=== PATIENT | female | born 1955 | race Caucasian/White ===

== ENCOUNTER 2021-06-13 11:15 | Inpatient (IN) | payer MEDICARE ==
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
[2021-06-14] MEDS ORDERED: NON-FORMULARY EACH (Albuterol Sulfate [Proair Respiclick] 90 MCG Aer.Pow.Ba) IH PRN (09:21)
[2021-06-14] MEDS ORDERED: ALPRAZolam 0.25 MG TAB PO PRN (09:21)
[2021-06-14] MEDS ORDERED: SODIUM CHLORIDE NASAL SPRAY 44ML NS PRN (09:21)
[2021-06-14] MEDS ORDERED: CYCLOBENZAPRINE 10 MG TAB PO PRN (09:21)
[2021-06-14] MEDS ORDERED: NON-FORMULARY EACH (Cholecalciferol (Vitamin D3) [Vitamin D3 2,000 Unit Cap] 2,000 UNIT Ca PO SCH (10:00)
[2021-06-14] MEDS ORDERED: LEVOTHYROXINE 88 MCG TAB PO SCH (10:00)
[2021-06-14] MEDS ORDERED: NON-FORMULARY EACH (Duloxetine Hcl [Duloxetine Hcl] 60 MG Capsule.Dr) PO SCH (10:00)
[2021-06-14] MEDS ORDERED: NON-FORMULARY EACH (Loratadine [Allergy Relief] 10 MG Tablet) PO SCH (10:00)
[2021-06-14] MEDS ORDERED: NON-FORMULARY EACH (Tiotropium Bromide [Spiriva Respimat] 4 GM Mist.Inhal) IH SCH (10:00)
[2021-06-14] MEDS ORDERED: BIOTIN 1 MG PO SCH (10:00)
[2021-06-14] MEDS ORDERED: NON-FORMULARY EACH (Omeprazole [Omeprazole] 20 MG Capsule.Dr) PO SCH (10:00)
[2021-06-14] MEDS: CYANOCOBALAMIN (VIT B-12) 1000 MCG TAB PO SCH (12:10)
[2021-06-14] MEDS: carvediloL 25 MG TAB PO SCH ×2 (12:13→21:38)
[2021-06-14] MEDS: FLUTICASONE PROPIONATE NASAL SPRAY 16 GM NS SCH ×2 (12:14→21:39)
[2021-06-14] MEDS: MAGNESIUM OXIDE 400 MG TAB PO SCH (12:15)
[2021-06-14] MEDS: CHOLECALCIFEROL (VIT D3) 1000 UNIT (25 mcg) TAB PO SCH (15:33)
--- NOTE | 2021-06-14 18:19 | Consultation ---
History of Present Illness - Reason for Consult Medical management Requesting physician: JOSE RAMON LAUREN - History of Present Illness 65-year-old female with osteoarthritis, hypertension, CHF, hyperlipidemia, hypothyroidism, chronic kidney disease, atrial fibrillation, vascular dementia with behavioral disturbance, cerebral atherosclerosis admitted to [facility] for psychiatric stabilization. Consult placed by Dr. Lauren for medical management. Patient seen and evaluated in her room. Patient denies fever, chills, chest pain, palpitation, productive cough, skin rash, recent contact, known exposure to COVID-19. No reported nursing events. Past History Past Medical History: atrial fib, heart failure, hypertension, hypothyroidism, other (See HPI) Past Surgical History: No surgical history, Other (Reviewed) Social history: single. denies: smoking, alcohol abuse, prescription drug abuse Family history: hypertension Medications and Allergies Allergies Allergy/AdvReac Type Severity Reaction Status Date / Time amlodipine Allergy Unknown Verified 06/14/21 16:46 apixaban Allergy Rash Verified 06/14/21 16:46 atenolol Allergy Rash Verified 06/14/21 16:46 cefdinir Allergy Unknown Verified 06/14/21 16:46 celecoxib Allergy Rash Verified 06/14/21 16:46 cephalexin Allergy Rash Verified 06/14/21 16:46 digoxin Allergy Rash Verified 06/14/21 16:46 doxycycline Allergy Rash Verified 06/14/21 16:46 isosorbide Allergy Rash Verified 06/14/21 16:46 Latex, Natural Rubber Allergy Rash Verified 06/14/21 16:46 [place] Allergy Unknown Verified 06/14/21 16:46 lisinopril Allergy Unknown Verified 06/14/21 16:46 methylprednisolone Allergy Unknown Verified 06/14/21 16:46 Penicillins Allergy Rash Verified 06/14/21 16:46 pregabalin Allergy Unknown Verified 06/14/21 16:46 propranolol Allergy Unknown Verified 06/14/21 16:46 rivaroxaban Allergy Unknown Verified 06/14/21 16:46 Sulfa (Sulfonamide Allergy Unknown Verified 06/14/21 16:46 Antibiotics) sulfamethoxazole Allergy Unknown Verified 06/14/21 16:46 [From Sulfamethoxazole-Trimethoprim] trimethoprim Allergy Unknown Verified 06/14/21 16:46 [From Sulfamethoxazole-Trimethoprim] Home Medications Medication Instructions Recorded Confirmed Last Taken Type ALPRAZolam [Xanax TAB] 0.25 mg PO 4XD PRN 06/13/21 06/13/21 Unknown History Albuterol Sulfate [Proair 90 mcg IH Q4HR PRN 06/13/21 06/13/21 Unknown History Respiclick] AtorvaSTATin [Lipitor] 20 mg PO BID 06/13/21 06/14/21 Unknown History Biotin [Biotin 1] 2,500 mcg PO DAILY 06/14/21 06/14/21 Unknown History Cholecalciferol (Vitamin D3) 2,000 unit PO QDAY 06/14/21 06/14/21 Unknown History [Vitamin D3 2,000 UNIT CAP] Cyanocobalamin (Vitamin B-12) 500 mcg PO DAILY 06/14/21 06/14/21 Unknown History [Vitamin B-12] Cyclobenzaprine [Flexeril 10 MG 10 mg PO BID PRN 06/14/21 06/14/21 Unknown History TAB] Duloxetine HCl 60 mg PO DAILY 06/14/21 06/14/21 Unknown History Fluticasone [Flonase] 1 spray NS BID 06/14/21 06/14/21 Unknown History Levothyroxine [Synthroid] 88 mcg PO QAM 06/14/21 06/14/21 Unknown History Loratadine [Allergy Relief] 10 mg PO DAILY 06/14/21 06/14/21 Unknown History Magnesium Oxide [Mag-Ox] 400 mg PO QDAY 06/14/21 06/14/21 Unknown History Omeprazole 20 mg PO DAILY 06/14/21 06/14/21 Unknown History Potassium Chloride [K-Dur] 20 meq PO QDAY 06/14/21 06/14/21 Unknown History Sodium Chloride 0.65% Nasal [Deep 2 spray NS 4XD PRN 06/14/21 06/14/21 Unknown History Sea NASAL SPRAY] Tiotropium [place] [Spiriva 2.5 mcg IH DAILY 06/14/21 06/14/21 Unknown History Respimat] Torsemide [Demadex] 20 mg PO HS 06/14/21 06/14/21 Unknown History Warfarin [Coumadin] 2.5 mg PO 5XW 06/14/21 06/14/21 Unknown History Warfarin [Coumadin] 5 mg PO 2XW 06/14/21 06/14/21 Unknown History carvediloL [Coreg] 25 mg PO BID 06/14/21 06/14/21 Unknown History hydrOXYzine PAMOATE [Vistaril] 25 mg PO Q4HR PRN 06/14/21 06/14/21 Unknown History oxyCODONE /ACETAMINOPHEN [Percocet 1 tab PO TID PRN 06/14/21 06/14/21 Unknown History 5/325 mg] Benztropine [Cogentin] 0.5 mg PO DAILY #60 tablet 06/24/21 Unknown Rx Melatonin [Melatonin 5MG TAB] 5 mg PO QHS PRN #30 tablet 06/24/21 Unknown Rx OLANzapine [ZyPREXA] 15 mg PO QHS #90 tablet 06/24/21 Unknown Rx Active Meds: Active Medications Alprazolam (Alprazolam 0.25 Mg Tab) 0.25 mg PO 4XD PRN PRN Reason: anxiety Atorvastatin Calcium (Atorvastatin 20 Mg Tab) 20 mg PO BID [facility] Last Admin: 06/14/21 12:12 Dose: 20 mg Documented by: Carvedilol (Carvedilol 25 Mg Tab) 25 mg PO BID [facility] Last Admin: 06/14/21 12:13 Dose: 25 mg Documented by: Cholecalciferol (Cholecalciferol (Vit D3) 1000 Unit (25 Mcg) Tab) 2,000 unit PO DAILY [facility] Last Admin: 06/14/21 15:33 Dose: 2,000 unit Documented by: Cyanocobalamin (Cyanocobalamin (Vit B-12) 1000 Mcg Tab) 500 mcg PO DAILY [facility] Last Admin: 06/14/21 12:10 Dose: 500 mcg Documented by: Cyclobenzaprine HCl (Cyclobenzaprine 10 Mg Tab) 10 mg PO BID PRN PRN Reason: Muscle Spasm Fluticasone Propionate (Fluticasone Propionate Nasal [place] 16 Gm) 50 mcg NS BID [facility] Last Admin: 06/14/21 12:14 Dose: 50 mcg Documented by: Hydroxyzine Pamoate (Hydroxyzine Pamoate 25 Mg Cap) 25 mg PO Q4HR PRN PRN Reason: anxiety Levothyroxine Sodium (Levothyroxine 88 Mcg Tab) 88 mcg PO QAM [facility] Last Admin: 06/14/21 12:12 Dose: 88 mcg Documented by: Magnesium Oxide (Magnesium Oxide 400 Mg Tab) 400 mg PO QDAY [facility] Olanzapine (Olanzapine 2.5 Mg Tab) 2.5 mg PO HS [facility] Oxycodone/Acetaminophen (Oxycodone /Acetaminophen 5-325mg Tab) 1 tab PO TID PRN PRN Reason: PAIN Potassium Chloride (Potassium Chloride Er 10 Meq Tab) 20 meq PO QDAY [facility] Sodium Chloride (Sodium Chloride Nasal [place] 44ml) 2 spray NS 4XD PRN PRN Reason: congestion Warfarin Sodium (Warfarin 2.5 Mg Tab) 2.5 mg PO 5XW [facility]; Protocol Warfarin Sodium (Warfarin 5 Mg Tab) 5 mg PO 2XW [facility]; Protocol Review of Systems Constitutional: no weight loss, no weight gain, no fever, no chills Ears, nose, mouth and throat: no ear pain, no ear discharge, no decreased hearing, no nose pain, no nasal congestion Breasts: no change in shape, no swelling, no mass Cardiovascular: no chest pain, no orthopnea, no palpitations, no rapid/irregular heart beat, no edema Respiratory: no cough, no cough with sputum, no hemoptysis, no dyspnea on exertion Gastrointestinal: no nausea, no vomiting, no diarrhea, no constipation, no change in bowel habits Genitourinary Female: no pelvic pain, no flank pain, no dysuria, no urinary frequency, no urgency Rectal: no pain, no incontinence, no bleeding Musculoskeletal: no neck stiffness, no neck pain, no arm numbness/tingling, no low back pain Integumentary: no rash, no redness, no sores, no wounds Neurological: no head injury, no paralysis, no parathesias, no numbness, no seizures, no tremors Psychiatric: hallucinations, hopelessness Endocrine: no cold intolerance, no heat intolerance, no polyphagia, no polydipsia, no polyuria Hematologic/Lymphatic: no easy bruising, no easy bleeding Exam - Constitutional Vitals: Temp Pulse Resp BP Pulse Ox 98.7 F 70 18 138/74 92 06/14/21 08:07 06/14/21 12:13 06/14/21 08:07 06/14/21 12:13 06/14/21 08:07 General appearance: Present: obese - EENT Eyes: Present: PERRL ENT: hearing intact, clear oral mucosa - Neck Neck: Present: supple, normal ROM - Respiratory Respiratory effort: normal Respiratory: bilateral: CTA - Cardiovascular Heart Sounds: Present: S1 & S2. Absent: rub, click - Extremities Extremities: pulses symmetrical, No edema Peripheral Pulses: within normal limits - Abdominal General gastrointestinal: Present: soft, non-tender, non-distended, normal bowel sounds Female genitourinary: Present: normal - Integumentary Integumentary: Present: clear, warm, dry - Musculoskeletal Musculoskeletal: gait normal, strength equal bilaterally - Psychiatric Psychiatric: appropriate mood/affect, intact judgment & insight - Neurologic Neurologic: CNII-XII intact, moves all extremities Results - Labs CBC & Chem 7: 06/15/21 17:10 06/15/21 17:10 Assessment and Plan - Patient Problems (1) Vascular dementia with behavioral disturbance Status: Acute Plan to address problem: Verbal prompting, verbal redirection, benzodiazepine therapy as clinically indicated. (2) Cerebral atherosclerosis Status: Acute Plan to address problem: Risk factor reduction, antiplatelet therapy, (3) Hypertension Status: Acute Qualifiers: Hypertension type: primary hypertension Qualified Code(s): I10 - Essential (primary) hypertension Plan to address problem: Monitor blood pressure every shift, continue medical management (4) CHF (congestive heart failure) Status: Acute Qualifiers: Heart failure chronicity: chronic Plan to address problem: Strict I/O, monitor urine output every shift, daily weight, afterload reduction, blood pressure control. Continue medical management. (5) Atrial fibrillation Status: Acute Plan to address problem: Rate control, continue therapeutic anticoagulation. (6) Advance care planning Status: Acute Plan to address problem: Disease education conducted, care plan discussed, diagnoses discussed, prognosis discussed, patient is full code. Patient acknowledges understanding and agreement with care plan, +30 minutes.
[2021-06-14] MEDS: POTASSIUM CHLORIDE ER 10 MEQ TAB PO SCH (18:37)
[2021-06-14] MEDS ORDERED: TORSEMIDE 10 MG TAB PO SCH (21:00)
[2021-06-14] MEDS: hydrOXYzine PAMOATE 25 MG CAP PO PRN (21:38)
[2021-06-14] MEDS ORDERED: NON-FORMULARY EACH (Olanzapine [Zyprexa] 15 MG Tablet) PO SCH (22:00)
[2021-06-14] MEDS ORDERED: NON-FORMULARY EACH (Torsemide [Demadex] 20 MG Tablet) PO SCH (22:00)
[2021-06-14] MEDS ORDERED: ALBUTEROL 2.5 MG/3 ML NEBU IH PRN (22:36)
[2021-06-15] MEDS: LEVOTHYROXINE 88 MCG TAB PO SCH ×2 (05:19→05:47)
[2021-06-15] MEDS ORDERED: ALPRAZolam 0.25 MG TAB PO PRN (08:00)
--- NOTE | 2021-06-15 08:10 | Progress Note ---
Subjective Date of service: 06/15/21 Subjective Comment: The patient was seen in the activity room, she is calm but paranoid. The patient states her medications are poisoned " they are trying to kill me." She endorses visual hallucinations " sing flashing colors and lights." The patient reports having intermittent auditory hallucinations. Start patient on Haldol 5mg po BID, please give IM patient refuse. REVIEW OF SYSTEMS Constitutional: Negative for weight loss ENT: Negative for stridor Respiratory: Negative for cough or hemoptysis All other systems reviewed and are negative MENTAL STATUS EXAMINATION General Appearance and Behavior: Age appropriate, good hygiene, wearing appropriate clothes, fair eye contact Cooperation: Participating/engaged, but Guarded Psychomotor Behavior: Psychomotor normal Mood: paranoid Affect and affective range: Congruent to stated mood Thought Process: illogical Thought Content: paranoid, delusions Speech: normal tone and pace Suicidal Ideation:Denies Homicidal Ideation: Denies Hallucinations: Intermittent Auditory/ Visual Hallucinations Impulse Control: Questionable Insight and Judgment: Limited insight and judgment Memory: Normal Attention: Normal Orientation: Alert and oriented Assessment and Plan (1) Schizophrenia Current Visit: Yes Status: Acute Treatment Plan Patient admitted for inpatient psychiatric evaluation, medication adjustment and close monitoring The patient's behavior, mood, sleep and appetite will be closely monitored. Patient enrolled in individual and group therapeutic sessions and encouraged to attend. Patient provided with a safe and structured environment. Patient's physical health needs will be addressed by the Hospitalist. Hospitalist Consulted Labs including CBC, CMP, Lipid profile and Hemoglobin A1C levels ordered for baseline reference Social Assessment will be completed and the Animation Camera Operator will work with patient and family to ensure a suitable and safe disposition Medication adjustment will be made as clinically indicated Start Haldol 5mg po BID, Give IM if patient refuse. Continued Home medications Usual Wellness Gnosticism/Preservation: - Start Trazodone 50 mg po QHS & 50 mg po QHS PRN between 10 PM & 2 AM for insomnia - Start Melatonin 5 mg po QHS to promote circadian rhythm The patient agreed on the treatment plan, understood the risk, benefit, alternative treatment, potential consequence of no treatment, and gave informed consent. Estimated days: 6 Post hospital care: primary care provider, psychiatric provider Case staffed with Dr. Mullins Reaction to Hospitalization: Accepting Medications and Allergies Medications and Allergies Allergies Allergy/AdvReac Type Severity Reaction Status Date / Time amlodipine Allergy Unknown Verified 06/14/21 16:46 apixaban Allergy Rash Verified 06/14/21 16:46 atenolol Allergy Rash Verified 06/14/21 16:46 cefdinir Allergy Unknown Verified 06/14/21 16:46 celecoxib Allergy Rash Verified 06/14/21 16:46 cephalexin Allergy Rash Verified 06/14/21 16:46 digoxin Allergy Rash Verified 06/14/21 16:46 doxycycline Allergy Rash Verified 06/14/21 16:46 isosorbide Allergy Rash Verified 06/14/21 16:46 Latex, Natural Rubber Allergy Rash Verified 06/14/21 16:46 [place] Allergy Unknown Verified 06/14/21 16:46 lisinopril Allergy Unknown Verified 06/14/21 16:46 methylprednisolone Allergy Unknown Verified 06/14/21 16:46 Penicillins Allergy Rash Verified 06/14/21 16:46 pregabalin Allergy Unknown Verified 06/14/21 16:46 propranolol Allergy Unknown Verified 06/14/21 16:46 rivaroxaban Allergy Unknown Verified 06/14/21 16:46 Sulfa (Sulfonamide Allergy Unknown Verified 06/14/21 16:46 Antibiotics) sulfamethoxazole Allergy Unknown Verified 06/14/21 16:46 [From Sulfamethoxazole-Trimethoprim] trimethoprim Allergy Unknown Verified 06/14/21 16:46 [From Sulfamethoxazole-Trimethoprim] Home Medications Medication Instructions Recorded Confirmed Last Taken Type ALPRAZolam [Xanax TAB] 0.25 mg PO 4XD PRN 06/13/21 06/13/21 Unknown History Albuterol Sulfate [Proair 90 mcg IH Q4HR PRN 06/13/21 06/13/21 Unknown History Respiclick] AtorvaSTATin [Lipitor] 20 mg PO BID 06/13/21 06/14/21 Unknown History Biotin [Biotin 1] 2,500 mcg PO DAILY 06/14/21 06/14/21 Unknown History Cholecalciferol (Vitamin D3) 2,000 unit PO QDAY 06/14/21 06/14/21 Unknown History [Vitamin D3 2,000 UNIT CAP] Cyanocobalamin (Vitamin B-12) 500 mcg PO DAILY 06/14/21 06/14/21 Unknown History [Vitamin B-12] Cyclobenzaprine [Flexeril] 10 mg PO BID PRN 06/14/21 06/14/21 Unknown History Duloxetine HCl 60 mg PO DAILY 06/14/21 06/14/21 Unknown History Fluticasone [Flonase] 1 spray NS BID 06/14/21 06/14/21 Unknown History Levothyroxine [Synthroid] 88 mcg PO QAM 06/14/21 06/14/21 Unknown History Loratadine [Allergy Relief] 10 mg PO DAILY 06/14/21 06/14/21 Unknown History Magnesium Oxide [Mag-Ox] 400 mg PO QDAY 06/14/21 06/14/21 Unknown History OLANZapine [Zyprexa] 15 mg PO HS 06/14/21 06/14/21 Unknown History OLANzapine [ZyPREXA] 2.5 mg PO HS 06/14/21 06/14/21 Unknown History Omeprazole 20 mg PO DAILY 06/14/21 06/14/21 Unknown History Potassium Chloride [K-Dur] 20 meq PO QDAY 06/14/21 06/14/21 Unknown History Sodium Chloride 0.65% Nasal [Deep 2 spray NS 4XD PRN 06/14/21 06/14/21 Unknown History Sea] Tiotropium [place] [Spiriva 2.5 mcg IH DAILY 06/14/21 06/14/21 Unknown History Respimat] Torsemide [Demadex] 20 mg PO HS 06/14/21 06/14/21 Unknown History Warfarin [Coumadin] 2.5 mg PO 5XW 06/14/21 06/14/21 Unknown History Warfarin [Coumadin] 5 mg PO 2XW 06/14/21 06/14/21 Unknown History carvediloL [Coreg] 25 mg PO BID 06/14/21 06/14/21 Unknown History hydrOXYzine PAMOATE [Vistaril] 25 mg PO Q4HR PRN 06/14/21 06/14/21 Unknown History oxyCODONE /ACETAMINOPHEN [Percocet 1 tab PO TID PRN 06/14/21 06/14/21 Unknown History 5/325] Active Meds: Active Medications Albuterol (Albuterol 2.5 Mg/3 Ml Nebu) 2.5 mg IH Q4HRT PRN PRN Reason: Shortness Of Breath Alprazolam (Alprazolam 0.25 Mg Tab) 0.25 mg PO Q6H PRN PRN Reason: anxiety Atorvastatin Calcium (Atorvastatin 20 Mg Tab) 20 mg PO BID [facility] Last Admin: 06/14/21 21:38 Dose: 20 mg Documented by: Carvedilol (Carvedilol 25 Mg Tab) 25 mg PO BID [facility] Last Admin: 06/14/21 21:38 Dose: 25 mg Documented by: Cetirizine HCl (Cetirizine 10 Mg Tab) 10 mg PO DAILY [facility] Cholecalciferol (Cholecalciferol (Vit D3) 1000 Unit (25 Mcg) Tab) 2,000 unit PO DAILY [facility] Last Admin: 06/14/21 15:33 Dose: 2,000 unit Documented by: Cyanocobalamin (Cyanocobalamin (Vit B-12) 1000 Mcg Tab) 500 mcg PO DAILY [facility] Last Admin: 06/14/21 12:10 Dose: 500 mcg Documented by: Cyclobenzaprine HCl (Cyclobenzaprine 10 Mg Tab) 10 mg PO BID PRN PRN Reason: Muscle Spasm Duloxetine HCl (Duloxetine 30 Mg Cap) 60 mg PO DAILY [facility] Fluticasone Propionate (Fluticasone Propionate Nasal [place] 16 Gm) 50 mcg NS BID [facility] Last Admin: 06/14/21 21:39 Dose: 50 mcg Documented by: Hydroxyzine Pamoate (Hydroxyzine Pamoate 25 Mg Cap) 25 mg PO Q4HR PRN PRN Reason: anxiety Last Admin: 06/14/21 21:38 Dose: 25 mg Documented by: Levothyroxine Sodium (Levothyroxine 88 Mcg Tab) 88 mcg PO QAM@0600 [facility] Last Admin: 06/15/21 05:47 Dose: Not Given Documented by: Magnesium Oxide (Magnesium Oxide 400 Mg Tab) 400 mg PO QDAY [facility] Last Admin: 06/14/21 12:15 Dose: 400 mg Documented by: Olanzapine (Olanzapine 2.5 Mg Tab) 2.5 mg PO HS [facility] Last Admin: 06/14/21 21:38 Dose: 2.5 mg Documented by: Olanzapine (Olanzapine 7.5 Mg Tab) 15 mg PO QHS [facility] Oxycodone/Acetaminophen (Oxycodone /Acetaminophen 5-325mg Tab) 1 tab PO TID PRN PRN Reason: PAIN Pantoprazole Sodium (Pantoprazole 20 Mg Tab) 20 mg PO DAILY [facility] Potassium Chloride (Potassium Chloride Er 10 Meq Tab) 20 meq PO QDAY [facility] Last Admin: 06/14/21 18:37 Dose: Not Given Documented by: Sodium Chloride (Sodium Chloride Nasal [place] 44ml) 2 spray NS 4XD PRN PRN Reason: congestion Tiotropium [place] (Tiotropium 18 Mcg Cap Inhalation) 2.5 puff IH DAILY [facility] Torsemide (Torsemide 10 Mg Tab) 20 mg PO 0800 [facility] Warfarin Sodium (Warfarin 2.5 Mg Tab) 2.5 mg PO 5XW [facility]; Protocol Warfarin Sodium (Warfarin 5 Mg Tab) 5 mg PO 2XW [facility]; Protocol Results - Results Labs/Vitals: Laboratory Last Values POC Glucose 98 mg/dL (70-105) 06/14/21 07:24 Last Vital Signs Temp 97.7 F 06/14/21 22:00 Pulse 76 06/14/21 22:00 Resp 18 06/14/21 22:00 BP 171/99 06/14/21 22:00 Pulse Ox 92 06/14/21 22:00
[2021-06-15] MEDS: carvediloL 25 MG TAB PO SCH ×2 (09:22→21:10)
[2021-06-15] MEDS: HALOPERIDOL 5 MG TAB PO SCH ×2 (09:23→21:12)
[2021-06-15] MEDS: TORSEMIDE 10 MG TAB PO SCH (09:23)
[2021-06-15] MEDS: CHOLECALCIFEROL (VIT D3) 1000 UNIT (25 mcg) TAB PO SCH (09:23)
[2021-06-15] MEDS: CETIRIZINE 10 MG TAB PO SCH (09:24)
[2021-06-15] MEDS: DULoxetine 30 MG CAP PO SCH (09:24)
[2021-06-15] MEDS: PANTOPRAZOLE 20 MG TAB PO SCH (09:24)
[2021-06-15] MEDS: MAGNESIUM OXIDE 400 MG TAB PO SCH (09:24)
[2021-06-15] MEDS: POTASSIUM CHLORIDE ER 10 MEQ TAB PO SCH (09:24)
[2021-06-15] MEDS: CYANOCOBALAMIN (VIT B-12) 1000 MCG TAB PO SCH (09:24)
[2021-06-15] MEDS: FLUTICASONE PROPIONATE NASAL SPRAY 16 GM NS SCH ×2 (09:34→21:11)
[2021-06-15] MEDS: HALOPERIDOL LACTATE 5 MG/1 ML INJ IM SCH ×2 (09:35→21:18)
[2021-06-15] MEDS ORDERED: TIOTROPIUM 18 MCG CAP INHALATION IH SCH (10:00)
[2021-06-15 17:30] LABS: Basophils % (Auto) 0.3 % (0.0-1.8); Eosinophils % (Auto) 0.1 % (0.0-4.3); Hematocrit 40.7 % (30.3-42.9); Hemoglobin 13.9 gm/dl (10.1-14.3); Lymphocytes # (Auto) 1.2 K/mm3 (1.2-5.4); Lymphocytes % (Auto) 11.5 % (13.4-35.0); Mean Corpuscular HGB Conc 34 % (30-34); Mean Corpuscular Volume 77 fl (79-97); Monocytes % (Auto) 9.8 % (0.0-7.3); Platelet Count 327 K/mm3 (140-440); Red Blood Count 5.28 M/mm3 (3.65-5.03); Red Cell Distribution Width 15.9 % (13.2-15.2)
[2021-06-15 17:49] LABS: Alanine Aminotransferase 17 units/L (7-56); Albumin 4.2 g/dL (3.9-5); BUN/Creatinine Ratio 18; Blood Urea Nitrogen 16 mg/dL (7-17); Calcium 9.7 mg/dL (8.4-10.2); Chol/HDL Ratio 2.46 %; HDL Cholesterol 58 mg/dL (40-59); Hemolysis Index 10; LDL Cholesterol,Direct 69 mg/dL (50-130)
[2021-06-15 17:52] LABS: INR 1.79 (0.87-1.13)
[2021-06-16] MEDS: LEVOTHYROXINE 88 MCG TAB PO SCH (05:49)
--- NOTE | 2021-06-16 08:26 | Progress Note ---
Subjective Date of service: 06/16/21 Subjective Comment: 06/15/2021:The patient was seen in the activity room, she is calm but paranoid. The patient states her medications are poisoned " they are trying to kill me." She endorses visual hallucinations " sing flashing colors and lights." The pepe ent reports having intermittent auditory hallucinations. Start patient on Haldol 5mg po BID, please give IM if patient refuse. 06/16/2021: The patient was seen eating breakfast. She states " I'm doing better, I slept better last night." She continue to be confused and paranoid. She reports having intermittent auditory hallucinations and denies suicidal/homicidal ideation. REVIEW OF SYSTEMS Constitutional: Negative for weight loss ENT: Negative for stridor Respiratory: Negative for cough or hemoptysis All other systems reviewed and are negative MENTAL STATUS EXAMINATION General Appearance and Behavior: Age appropriate, good hygiene, wearing appropriate clothes, fair eye contact Cooperation: Participating/engaged, but Guarded Psychomotor Behavior: Psychomotor normal Mood:"ok" Affect and affective range: Incongruent with stated mood Thought Process: illogical Thought Content: paranoid, confused Speech: normal tone and pace Suicidal Ideation:Denies Homicidal Ideation: Denies Hallucinations: Intermittent Auditory/ Visual Hallucinations Impulse Control: Questionable Insight and Judgment: Limited insight and judgment Memory: Normal Attention: Normal Orientation: Alert and oriented Assessment and Plan (1) Schizophrenia Current Visit: Yes Status: Acute Treatment Plan Patient admitted for inpatient psychiatric evaluation, medication adjustment and close monitoring The patient's behavior, mood, sleep and appetite will be closely monitored. Patient enrolled in individual and group therapeutic sessions and encouraged to attend. Patient provided with a safe and structured environment. Patient's physical health needs will be addressed by the Hospitalist. Hospitalist Consulted Labs including CBC, CMP, Lipid profile and Hemoglobin A1C levels ordered for baseline reference Social Assessment will be completed and the Diver Tender will work with patient and family to ensure a suitable and safe disposition Medication adjustment will be made as clinically indicated Elevated INR/PT- Medical team to evaluate Increase Haldol 10 mg po BID, Give IM if patient refuse. Continued Home medications Usual Wellness Mandaeism/Preservation: - Start Trazodone 50 mg po QHS & 50 mg po QHS PRN between 10 PM & 2 AM for insomnia - Start Melatonin 5 mg po QHS to promote circadian rhythm The patient agreed on the treatment plan, understood the risk, benefit, alternative treatment, potential consequence of no treatment, and gave informed consent. Estimated days: 6 Post hospital care: primary care provider, psychiatric provider Case staffed with Dr. Mullins Reaction to Hospitalization: Accepting Medications and Allergies Medications and Allergies Allergies Allergy/AdvReac Type Severity Reaction Status Date / Time amlodipine Allergy Unknown Verified 06/14/21 16:46 apixaban Allergy Rash Verified 06/14/21 16:46 atenolol Allergy Rash Verified 06/14/21 16:46 cefdinir Allergy Unknown Verified 06/14/21 16:46 celecoxib Allergy Rash Verified 06/14/21 16:46 cephalexin Allergy Rash Verified 06/14/21 16:46 digoxin Allergy Rash Verified 06/14/21 16:46 doxycycline Allergy Rash Verified 06/14/21 16:46 isosorbide Allergy Rash Verified 06/14/21 16:46 Latex, Natural Rubber Allergy Rash Verified 06/14/21 16:46 [place] Allergy Unknown Verified 06/14/21 16:46 lisinopril Allergy Unknown Verified 06/14/21 16:46 methylprednisolone Allergy Unknown Verified 06/14/21 16:46 Penicillins Allergy Rash Verified 06/14/21 16:46 pregabalin Allergy Unknown Verified 06/14/21 16:46 propranolol Allergy Unknown Verified 06/14/21 16:46 rivaroxaban Allergy Unknown Verified 06/14/21 16:46 Sulfa (Sulfonamide Allergy Unknown Verified 06/14/21 16:46 Antibiotics) sulfamethoxazole Allergy Unknown Verified 06/14/21 16:46 [From Sulfamethoxazole-Trimethoprim] trimethoprim Allergy Unknown Verified 06/14/21 16:46 [From Sulfamethoxazole-Trimethoprim] Home Medications Medication Instructions Recorded Confirmed Last Taken Type ALPRAZolam [Xanax TAB] 0.25 mg PO 4XD PRN 06/13/21 06/13/21 Unknown History Albuterol Sulfate [Proair 90 mcg IH Q4HR PRN 06/13/21 06/13/21 Unknown History Respiclick] AtorvaSTATin [Lipitor] 20 mg PO BID 06/13/21 06/14/21 Unknown History Biotin [Biotin 1] 2,500 mcg PO DAILY 06/14/21 06/14/21 Unknown History Cholecalciferol (Vitamin D3) 2,000 unit PO QDAY 06/14/21 06/14/21 Unknown History [Vitamin D3 2,000 UNIT CAP] Cyanocobalamin (Vitamin B-12) 500 mcg PO DAILY 06/14/21 06/14/21 Unknown History [Vitamin B-12] Cyclobenzaprine [Flexeril] 10 mg PO BID PRN 06/14/21 06/14/21 Unknown History Duloxetine HCl 60 mg PO DAILY 06/14/21 06/14/21 Unknown History Fluticasone [Flonase] 1 spray NS BID 06/14/21 06/14/21 Unknown History Levothyroxine [Synthroid] 88 mcg PO QAM 06/14/21 06/14/21 Unknown History Loratadine [Allergy Relief] 10 mg PO DAILY 06/14/21 06/14/21 Unknown History Magnesium Oxide [Mag-Ox] 400 mg PO QDAY 06/14/21 06/14/21 Unknown History OLANZapine [Zyprexa] 15 mg PO HS 06/14/21 06/14/21 Unknown History OLANzapine [ZyPREXA] 2.5 mg PO HS 06/14/21 06/14/21 Unknown History Omeprazole 20 mg PO DAILY 06/14/21 06/14/21 Unknown History Potassium Chloride [K-Dur] 20 meq PO QDAY 06/14/21 06/14/21 Unknown History Sodium Chloride 0.65% Nasal [Deep 2 spray NS 4XD PRN 06/14/21 06/14/21 Unknown History Sea] Tiotropium [place] [Spiriva 2.5 mcg IH DAILY 06/14/21 06/14/21 Unknown History Respimat] Torsemide [Demadex] 20 mg PO HS 06/14/21 06/14/21 Unknown History Warfarin [Coumadin] 2.5 mg PO 5XW 06/14/21 06/14/21 Unknown History Warfarin [Coumadin] 5 mg PO 2XW 06/14/21 06/14/21 Unknown History carvediloL [Coreg] 25 mg PO BID 06/14/21 06/14/21 Unknown History hydrOXYzine PAMOATE [Vistaril] 25 mg PO Q4HR PRN 06/14/21 06/14/21 Unknown History oxyCODONE /ACETAMINOPHEN [Percocet 1 tab PO TID PRN 06/14/21 06/14/21 Unknown History 5/325] Active Meds: Active Medications Albuterol (Albuterol 2.5 Mg/3 Ml Nebu) 2.5 mg IH Q4HRT PRN PRN Reason: Shortness Of Breath Alprazolam (Alprazolam 0.25 Mg Tab) 0.25 mg PO Q6H PRN PRN Reason: anxiety Atorvastatin Calcium (Atorvastatin 20 Mg Tab) 20 mg PO BID [facility] Last Admin: 06/15/21 21:12 Dose: 20 mg Documented by: Carvedilol (Carvedilol 25 Mg Tab) 25 mg PO BID [facility] Last Admin: 06/15/21 21:10 Dose: 25 mg Documented by: Cetirizine HCl (Cetirizine 10 Mg Tab) 10 mg PO DAILY [facility] Last Admin: 06/15/21 09:24 Dose: 10 mg Documented by: Cholecalciferol (Cholecalciferol (Vit D3) 1000 Unit (25 Mcg) Tab) 2,000 unit PO DAILY [facility] Last Admin: 06/15/21 09:23 Dose: 2,000 unit Documented by: Cyanocobalamin (Cyanocobalamin (Vit B-12) 1000 Mcg Tab) 500 mcg PO DAILY [facility] Last Admin: 06/15/21 09:24 Dose: 500 mcg Documented by: Cyclobenzaprine HCl (Cyclobenzaprine 10 Mg Tab) 10 mg PO BID PRN PRN Reason: Muscle Spasm Duloxetine HCl (Duloxetine 30 Mg Cap) 60 mg PO DAILY [facility] Last Admin: 06/15/21 09:24 Dose: 60 mg Documented by: Fluticasone Propionate (Fluticasone Propionate Nasal [place] 16 Gm) 50 mcg NS BID [facility] Last Admin: 06/15/21 21:11 Dose: 50 mcg Documented by: Haloperidol (Haloperidol 5 Mg Tab) 5 mg PO BID [facility] Last Admin: 06/15/21 21:12 Dose: 5 mg Documented by: Haloperidol Lactate (Haloperidol Lactate 5 Mg/1 Ml Inj) 5 mg IM BID [facility] Last Admin: 06/15/21 21:18 Dose: Not Given Documented by: Hydroxyzine Pamoate (Hydroxyzine Pamoate 25 Mg Cap) 25 mg PO Q4HR PRN PRN Reason: anxiety Last Admin: 06/14/21 21:38 Dose: 25 mg Documented by: Levothyroxine Sodium (Levothyroxine 88 Mcg Tab) 88 mcg PO QAM@0600 [facility] Last Admin: 06/16/21 05:49 Dose: 88 mcg Documented by: Magnesium Oxide (Magnesium Oxide 400 Mg Tab) 400 mg PO QDAY [facility] Last Admin: 06/15/21 09:24 Dose: 400 mg Documented by: Oxycodone/Acetaminophen (Oxycodone /Acetaminophen 5-325mg Tab) 1 tab PO TID PRN PRN Reason: PAIN Pantoprazole Sodium (Pantoprazole 20 Mg Tab) 20 mg PO DAILY [facility] Last Admin: 06/15/21 09:24 Dose: 20 mg Documented by: Potassium Chloride (Potassium Chloride Er 10 Meq Tab) 20 meq PO QDAY [facility] Last Admin: 06/15/21 09:24 Dose: 20 meq Documented by: Sodium Chloride (Sodium Chloride Nasal [place] 44ml) 2 spray NS 4XD PRN PRN Reason: congestion Tiotropium [place] (Tiotropium 18 Mcg Cap Inhalation) 1 puff IH Q24HRT [facility] Torsemide (Torsemide 10 Mg Tab) 20 mg PO 0800 [facility] Last Admin: 06/15/21 09:23 Dose: 20 mg Documented by: Warfarin Sodium (Warfarin 2.5 Mg Tab) 2.5 mg PO 5XW [facility]; Protocol Warfarin Sodium (Warfarin 5 Mg Tab) 5 mg PO 2XW [facility]; Protocol Results - Results Labs/Vitals: Laboratory Last Values WBC 10.3 K/mm3 (4.5-11.0) 06/15/21 17:10 RBC 5.28 M/mm3 (3.65-5.03) H 06/15/21 17:10 Hgb 13.9 gm/dl (10.1-14.3) 06/15/21 17:10 Hct 40.7 % (30.3-42.9) 06/15/21 17:10 MCV 77 fl (79-97) L 06/15/21 17:10 MCH 26 pg (28-32) L 06/15/21 17:10 MCHC 34 % (30-34) 06/15/21 17:10 RDW 15.9 % (13.2-15.2) H 06/15/21 17:10 Plt Count 327 K/mm3 (140-440) 06/15/21 17:10 Lymph % (Auto) 11.5 % (13.4-35.0) L 06/15/21 17:10 [place] % (Auto) 9.8 % (0.0-7.3) H 06/15/21 17:10 Eos % (Auto) 0.1 % (0.0-4.3) 06/15/21 17:10 Baso % (Auto) 0.3 % (0.0-1.8) 06/15/21 17:10 Lymph # (Auto) 1.2 K/mm3 (1.2-5.4) 06/15/21 17:10 [place] # (Auto) 1.0 K/mm3 (0.0-0.8) H 06/15/21 17:10 Eos # (Auto) 0.0 K/mm3 (0.0-0.4) 06/15/21 17:10 Baso # (Auto) 0.0 K/mm3 (0.0-0.1) 06/15/21 17:10 Seg Neutrophils % 78.3 % (40.0-70.0) H 06/15/21 17:10 Seg Neutrophils # 8.0 K/mm3 (1.8-7.7) H 06/15/21 17:10 PT 21.2 Sec. (12.2-14.9) H 06/15/21 17:10 INR 1.79 (0.87-1.13) H 06/15/21 17:10 Sodium 137 mmol/L (137-145) 06/15/21 17:10 Potassium 3.7 mmol/L (3.6-5.0) 06/15/21 17:10 Chloride 98.4 mmol/L (98-107) 06/15/21 17:10 Carbon Dioxide 20 mmol/L (22-30) L 06/15/21 17:10 Anion Gap 22 mmol/L 06/15/21 17:10 BUN 16 mg/dL (7-17) 06/15/21 17:10 Creatinine 0.9 mg/dL (0.6-1.2) 06/15/21 17:10 Estimated GFR > 60 ml/min 06/15/21 17:10 BUN/Creatinine Ratio 18 % 06/15/21 17:10 Glucose 138 mg/dL (65-100) H 06/15/21 17:10 POC Glucose 98 mg/dL (70-105) 06/14/21 07:24 Hemoglobin A1c 6.1 % (4-6) H 06/15/21 17:10 Calcium 9.7 mg/dL (8.4-10.2) 06/15/21 17:10 Total Bilirubin 1.00 mg/dL (0.1-1.2) 06/15/21 17:10 AST 28 units/L (5-40) 06/15/21 17:10 ALT 17 units/L (7-56) 06/15/21 17:10 Alkaline Phosphatase 149 units/L (35-129) H 06/15/21 17:10 Total Protein 8.8 g/dL (6.3-8.2) H 06/15/21 17:10 Albumin 4.2 g/dL (3.9-5) 06/15/21 17:10 Albumin/Globulin Ratio 0.9 % 06/15/21 17:10 Triglycerides 87 mg/dL (2-149) 06/15/21 17:10 Cholesterol 143 mg/dL (50-199) 06/15/21 17:10 LDL Cholesterol Direct 69 mg/dL (50-130) 06/15/21 17:10 HDL Cholesterol 58 mg/dL (40-59) 06/15/21 17:10 Cholesterol/HDL Ratio 2.46 % 06/15/21 17:10 TSH 1.570 mlU/mL (0.270-4.200) 06/15/21 17:10 Last Vital Signs Temp 98.9 F 06/16/21 07:36 Pulse 74 06/16/21 07:36 Resp 16 06/16/21 07:36 BP 131/63 06/16/21 07:36 Pulse Ox 90 06/16/21 07:36
[2021-06-16] MEDS: FLUTICASONE PROPIONATE NASAL SPRAY 16 GM NS SCH ×2 (09:41→21:31)
[2021-06-16] MEDS: CYANOCOBALAMIN (VIT B-12) 1000 MCG TAB PO SCH (09:41)
[2021-06-16] MEDS: MAGNESIUM OXIDE 400 MG TAB PO SCH (09:42)
[2021-06-16] MEDS: POTASSIUM CHLORIDE ER 10 MEQ TAB PO SCH (09:42)
[2021-06-16] MEDS: CHOLECALCIFEROL (VIT D3) 1000 UNIT (25 mcg) TAB PO SCH (09:42)
[2021-06-16] MEDS: carvediloL 25 MG TAB PO SCH ×2 (09:42→21:30)
[2021-06-16] MEDS: DULoxetine 30 MG CAP PO SCH (09:43)
[2021-06-16] MEDS: CETIRIZINE 10 MG TAB PO SCH (09:43)
[2021-06-16] MEDS: BENZTROPINE 0.5 MG TAB PO SCH (09:43)
[2021-06-16] MEDS: HALOPERIDOL 5 MG TAB PO SCH ×2 (09:43→21:32)
[2021-06-16] MEDS: PANTOPRAZOLE 20 MG TAB PO SCH (09:43)
[2021-06-16] MEDS: TORSEMIDE 10 MG TAB PO SCH (09:43)
[2021-06-16] MEDS: TIOTROPIUM 18 MCG CAP INHALATION IH SCH (09:44)
[2021-06-16] MEDS: HALOPERIDOL LACTATE 5 MG/1 ML INJ IM SCH ×2 (09:52→21:41)
[2021-06-16] MEDS: WARFARIN 2.5 MG TAB PO SCH (17:22)
[2021-06-16 22:40] LABS: INR 1.65 (0.87-1.13)
[2021-06-17] MEDS: LEVOTHYROXINE 88 MCG TAB PO SCH (05:31)
[2021-06-17 06:30] LABS: INR 1.6 (0.87-1.13)
[2021-06-17] MEDS: TIOTROPIUM 18 MCG CAP INHALATION IH SCH (08:36)
--- NOTE | 2021-06-17 08:55 | Progress Note ---
Subjective Date of service: 06/17/21 Subjective Comment: 06/15/2021:The patient was seen in the activity room, she is calm but paranoid. The patient states her medications are poisoned " they are trying to kill me." She endorses visual hallucinations " sing flashing colors and lights." The patient reports having intermittent auditory hallucinations. Start patient on Haldol 5mg po BID, please give IM if patient refuse. 06/16/2021: The patient was seen eating breakfast. She states " I'm doing better, I slept better last night." She continue to be confused and paranoid. She reports having intermittent auditory hallucinations and denies suicidal/homicidal ideation. 06/17/2021: The patient was seen in her room, she reports feeling better but complained of generalized pain. The patient states sleep and appetite as good. She states she wants to see her son and her grand children. The patient denies having any current suicidal/homicidal ideation. The patient denies hallucinations. REVIEW OF SYSTEMS Constitutional: Negative for weight loss ENT: Negative for stridor Respiratory: Negative for cough or hemoptysis All other systems reviewed and are negative MENTAL STATUS EXAMINATION General Appearance and Behavior: Age appropriate, good hygiene, wearing appropriate clothes, fair eye contact Cooperation: Participating/engaged, but Guarded Psychomotor Behavior: Psychomotor normal Mood:"better" Affect and affective range: congruent with stated mood Thought Process: Goal directed Thought Content: Not suicidal Speech: normal tone and pace Suicidal Ideation:Denies Homicidal Ideation: Denies Hallucinations: Denies Impulse Control: Questionable Insight and Judgment: Limited insight and judgment Memory: Normal Attention: Normal Orientation: Alert and oriented Assessment and Plan (1) Schizophrenia Current Visit: Yes Status: Acute Treatment Plan Patient admitted for inpatient psychiatric evaluation, medication adjustment and close monitoring The patient's behavior, mood, sleep and appetite will be closely monitored. Patient enrolled in individual and group therapeutic sessions and encouraged to attend. Patient provided with a safe and structured environment. Patient's physical health needs will be addressed by the Hospitalist. Hospitalist Consulted Labs including CBC, CMP, Lipid profile and Hemoglobin A1C levels ordered for baseline reference Social Assessment will be completed and the Viticulture Teacher will work with patient and family to ensure a suitable and safe disposition Medication adjustment will be made as clinically indicated Elevated INR/PT- Medical team to evaluate Continue Haldol 10 mg po BID, Give IM if patient refuse. Continued Home medications Usual Wellness [employer]/Preservation: - Start Trazodone 50 mg po QHS & 50 mg po QHS PRN between 10 PM & 2 AM for insomnia - Start Melatonin 5 mg po QHS to promote circadian rhythm The patient agreed on the treatment plan, understood the risk, benefit, alternative treatment, potential consequence of no treatment, and gave informed consent. Estimated days: 5 Post hospital care: primary care provider, psychiatric provider Case staffed with Dr. Mullins Reaction to Hospitalization: Accepting Medications and Allergies Medications and Allergies Medications and Allergies Allergies Allergy/AdvReac Type Severity Reaction Status Date / Time amlodipine Allergy Unknown Verified 06/14/21 16:46 apixaban Allergy Rash Verified 06/14/21 16:46 atenolol Allergy Rash Verified 06/14/21 16:46 cefdinir Allergy Unknown Verified 06/14/21 16:46 celecoxib Allergy Rash Verified 06/14/21 16:46 cephalexin Allergy Rash Verified 06/14/21 16:46 digoxin Allergy Rash Verified 06/14/21 16:46 doxycycline Allergy Rash Verified 06/14/21 16:46 isosorbide Allergy Rash Verified 06/14/21 16:46 Latex, Natural Rubber Allergy Rash Verified 06/14/21 16:46 [place] Allergy Unknown Verified 06/14/21 16:46 lisinopril Allergy Unknown Verified 06/14/21 16:46 methylprednisolone Allergy Unknown Verified 06/14/21 16:46 Penicillins Allergy Rash Verified 06/14/21 16:46 pregabalin Allergy Unknown Verified 06/14/21 16:46 propranolol Allergy Unknown Verified 06/14/21 16:46 rivaroxaban Allergy Unknown Verified 06/14/21 16:46 Sulfa (Sulfonamide Allergy Unknown Verified 06/14/21 16:46 Antibiotics) sulfamethoxazole Allergy Unknown Verified 06/14/21 16:46 [From Sulfamethoxazole-Trimethoprim] trimethoprim Allergy Unknown Verified 06/14/21 16:46 [From Sulfamethoxazole-Trimethoprim] Home Medications Medication Instructions Recorded Confirmed Last Taken Type ALPRAZolam [Xanax TAB] 0.25 mg PO 4XD PRN 06/13/21 06/13/21 Unknown History Albuterol Sulfate [Proair 90 mcg IH Q4HR PRN 06/13/21 06/13/21 Unknown History Respiclick] AtorvaSTATin [Lipitor] 20 mg PO BID 06/13/21 06/14/21 Unknown History Biotin [Biotin 1] 2,500 mcg PO DAILY 06/14/21 06/14/21 Unknown History Cholecalciferol (Vitamin D3) 2,000 unit PO QDAY 06/14/21 06/14/21 Unknown History [Vitamin D3 2,000 UNIT CAP] Cyanocobalamin (Vitamin B-12) 500 mcg PO DAILY 06/14/21 06/14/21 Unknown History [Vitamin B-12] Cyclobenzaprine [Flexeril] 10 mg PO BID PRN 06/14/21 06/14/21 Unknown History Duloxetine HCl 60 mg PO DAILY 06/14/21 06/14/21 Unknown History Fluticasone [Flonase] 1 spray NS BID 06/14/21 06/14/21 Unknown History Levothyroxine [Synthroid] 88 mcg PO QAM 06/14/21 06/14/21 Unknown History Loratadine [Allergy Relief] 10 mg PO DAILY 06/14/21 06/14/21 Unknown History Magnesium Oxide [Mag-Ox] 400 mg PO QDAY 06/14/21 06/14/21 Unknown History OLANZapine [Zyprexa] 15 mg PO HS 06/14/21 06/14/21 Unknown History OLANzapine [ZyPREXA] 2.5 mg PO HS 06/14/21 06/14/21 Unknown History Omeprazole 20 mg PO DAILY 06/14/21 06/14/21 Unknown History Potassium Chloride [K-Dur] 20 meq PO QDAY 06/14/21 06/14/21 Unknown History Sodium Chloride 0.65% Nasal [Deep 2 spray NS 4XD PRN 06/14/21 06/14/21 Unknown History Sea] Tiotropium [place] [Spiriva 2.5 mcg IH DAILY 06/14/21 06/14/21 Unknown History Respimat] Torsemide [Demadex] 20 mg PO HS 06/14/21 06/14/21 Unknown History Warfarin [Coumadin] 2.5 mg PO 5XW 06/14/21 06/14/21 Unknown History Warfarin [Coumadin] 5 mg PO 2XW 06/14/21 06/14/21 Unknown History carvediloL [Coreg] 25 mg PO BID 06/14/21 06/14/21 Unknown History hydrOXYzine PAMOATE [Vistaril] 25 mg PO Q4HR PRN 06/14/21 06/14/21 Unknown History oxyCODONE /ACETAMINOPHEN [Percocet 1 tab PO TID PRN 06/14/21 06/14/21 Unknown History ] Active Meds: Active Medications Albuterol (Albuterol 2.5 Mg/3 Ml Nebu) 2.5 mg IH Q4HRT PRN PRN Reason: Shortness Of Breath Alprazolam (Alprazolam 0.25 Mg Tab) 0.25 mg PO Q6H PRN PRN Reason: anxiety Atorvastatin Calcium (Atorvastatin 20 Mg Tab) 20 mg PO BID [facility] Last Admin: 06/16/21 21:33 Dose: 20 mg Documented by: Benztropine Mesylate (Benztropine 0.5 Mg Tab) 0.5 mg PO DAILY [facility] Last Admin: 06/16/21 09:43 Dose: 0.5 mg Documented by: Carvedilol (Carvedilol 25 Mg Tab) 25 mg PO BID [facility] Last Admin: 06/16/21 21:30 Dose: 25 mg Documented by: Cetirizine HCl (Cetirizine 10 Mg Tab) 10 mg PO DAILY [facility] Last Admin: 06/16/21 09:43 Dose: 10 mg Documented by: Cholecalciferol (Cholecalciferol (Vit D3) 1000 Unit (25 Mcg) Tab) 2,000 unit PO DAILY [facility] Last Admin: 06/16/21 09:42 Dose: 2,000 unit Documented by: Cyanocobalamin (Cyanocobalamin (Vit B-12) 1000 Mcg Tab) 500 mcg PO DAILY [facility] Last Admin: 06/16/21 09:41 Dose: 500 mcg Documented by: Cyclobenzaprine HCl (Cyclobenzaprine 10 Mg Tab) 10 mg PO BID PRN PRN Reason: Muscle Spasm Duloxetine HCl (Duloxetine 30 Mg Cap) 60 mg PO DAILY [facility] Last Admin: 06/16/21 09:43 Dose: 60 mg Documented by: Fluticasone Propionate (Fluticasone Propionate Nasal [place] 16 Gm) 50 mcg NS BID [facility] Last Admin: 06/16/21 21:31 Dose: 50 mcg Documented by: Haloperidol (Haloperidol 5 Mg Tab) 10 mg PO BID [facility] Last Admin: 06/16/21 21:32 Dose: 10 mg Documented by: Haloperidol Lactate (Haloperidol Lactate 5 Mg/1 Ml Inj) 5 mg IM BID [facility] Last Admin: 06/16/21 21:41 Dose: Not Given Documented by: Hydroxyzine Pamoate (Hydroxyzine Pamoate 25 Mg Cap) 25 mg PO Q4HR PRN PRN Reason: anxiety Last Admin: 06/14/21 21:38 Dose: 25 mg Documented by: Levothyroxine Sodium (Levothyroxine 88 Mcg Tab) 88 mcg PO QAM@0600 [facility] Last Admin: 06/17/21 05:31 Dose: 88 mcg Documented by: Magnesium Oxide (Magnesium Oxide 400 Mg Tab) 400 mg PO QDAY [facility] Last Admin: 06/16/21 09:42 Dose: 400 mg Documented by: Oxycodone/Acetaminophen (Oxycodone /Acetaminophen 5-325mg Tab) 1 tab PO TID PRN PRN Reason: PAIN Pantoprazole Sodium (Pantoprazole 20 Mg Tab) 20 mg PO DAILY [facility] Last Admin: 06/16/21 09:43 Dose: 20 mg Documented by: Potassium Chloride (Potassium Chloride Er 10 Meq Tab) 20 meq PO QDAY [facility] Last Admin: 06/16/21 09:42 Dose: 20 meq Documented by: Sodium Chloride (Sodium Chloride Nasal [place] 44ml) 2 spray NS 4XD PRN PRN Reason: congestion Tiotropium [place] (Tiotropium 18 Mcg Cap Inhalation) 1 puff IH Q24HRT [facility] Last Admin: 06/17/21 08:36 Dose: 1 puff Documented by: Torsemide (Torsemide 10 Mg Tab) 20 mg PO 0800 [facility] Last Admin: 06/16/21 09:43 Dose: 20 mg Documented by: Warfarin Sodium (Warfarin 2.5 Mg Tab) 2.5 mg PO David [facility]; Protocol Last Admin: 06/16/21 17:22 Dose: 2.5 mg Documented by: Warfarin Sodium (Warfarin 5 Mg Tab) 5 mg PO Kathrine [facility]; Protocol Results - Results Labs/Vitals: Laboratory Last Values WBC 10.3 K/mm3 (4.5-11.0) 06/15/21 17:10 RBC 5.28 M/mm3 (3.65-5.03) H 06/15/21 17:10 Hgb 13.9 gm/dl (10.1-14.3) 06/15/21 17:10 Hct 40.7 % (30.3-42.9) 06/15/21 17:10 MCV 77 fl (79-97) L 06/15/21 17:10 MCH 26 pg (28-32) L 06/15/21 17:10 MCHC 34 % (30-34) 06/15/21 17:10 RDW 15.9 % (13.2-15.2) H 06/15/21 17:10 Plt Count 327 K/mm3 (140-440) 06/15/21 17:10 Lymph % (Auto) 11.5 % (13.4-35.0) L 06/15/21 17:10 Jack % (Auto) 9.8 % (0.0-7.3) H 06/15/21 17:10 Eos % (Auto) 0.1 % (0.0-4.3) 06/15/21 17:10 Baso % (Auto) 0.3 % (0.0-1.8) 06/15/21 17:10 Lymph # (Auto) 1.2 K/mm3 (1.2-5.4) 06/15/21 17:10 Jack # (Auto) 1.0 K/mm3 (0.0-0.8) H 06/15/21 17:10 Eos # (Auto) 0.0 K/mm3 (0.0-0.4) 06/15/21 17:10 Baso # (Auto) 0.0 K/mm3 (0.0-0.1) 06/15/21 17:10 Seg Neutrophils % 78.3 % (40.0-70.0) H 06/15/21 17:10 Seg Neutrophils # 8.0 K/mm3 (1.8-7.7) H 06/15/21 17:10 PT 19.5 Sec. (12.2-14.9) H 06/17/21 05:29 INR 1.60 (0.87-1.13) H 06/17/21 05:29 Sodium 137 mmol/L (137-145) 06/15/21 17:10 Potassium 3.7 mmol/L (3.6-5.0) 06/15/21 17:10 Chloride 98.4 mmol/L (98-107) 06/15/21 17:10 Carbon Dioxide 20 mmol/L (22-30) L 06/15/21 17:10 Anion Gap 22 mmol/L 06/15/21 17:10 BUN 16 mg/dL (7-17) 06/15/21 17:10 Creatinine 0.9 mg/dL (0.6-1.2) 06/15/21 17:10 Estimated GFR > 60 ml/min 06/15/21 17:10 BUN/Creatinine Ratio 18 % 06/15/21 17:10 Glucose 138 mg/dL (65-100) H 06/15/21 17:10 POC Glucose 98 mg/dL (70-105) 06/14/21 07:24 Hemoglobin A1c 6.1 % (4-6) H 06/15/21 17:10 Calcium 9.7 mg/dL (8.4-10.2) 06/15/21 17:10 Total Bilirubin 1.00 mg/dL (0.1-1.2) 06/15/21 17:10 AST 28 units/L (5-40) 06/15/21 17:10 ALT 17 units/L (7-56) 06/15/21 17:10 Alkaline Phosphatase 149 units/L (35-129) H 06/15/21 17:10 Total Protein 8.8 g/dL (6.3-8.2) H 06/15/21 17:10 Albumin 4.2 g/dL (3.9-5) 06/15/21 17:10 Albumin/Globulin Ratio 0.9 % 06/15/21 17:10 Triglycerides 87 mg/dL (2-149) 06/15/21 17:10 Cholesterol 143 mg/dL (50-199) 06/15/21 17:10 LDL Cholesterol Direct 69 mg/dL (50-130) 06/15/21 17:10 HDL Cholesterol 58 mg/dL (40-59) 06/15/21 17:10 Cholesterol/HDL Ratio 2.46 % 06/15/21 17:10 TSH 1.570 mlU/mL (0.270-4.200) 06/15/21 17:10 Last Vital Signs Temp 98.5 F 06/16/21 19:32 Pulse 67 06/17/21 08:37 Resp 16 06/17/21 08:37 BP 138/64 06/16/21 21:30 Pulse Ox 96 06/16/21 19:32
--- NOTE | 2021-06-17 09:25 | Event Note ---
Date: 06/17/21 Unable to reach patient's family members- Reynold Melendrez at [phone]- No answering service- Cameron Farah- [phone]- answering service is full.
[2021-06-17] MEDS: CYANOCOBALAMIN (VIT B-12) 1000 MCG TAB PO SCH (11:37)
[2021-06-17] MEDS: BENZTROPINE 0.5 MG TAB PO SCH (11:38)
[2021-06-17] MEDS: HALOPERIDOL 5 MG TAB PO SCH (11:38)
[2021-06-17] MEDS: CETIRIZINE 10 MG TAB PO SCH (11:38)
[2021-06-17] MEDS: CHOLECALCIFEROL (VIT D3) 1000 UNIT (25 mcg) TAB PO SCH (11:38)
[2021-06-17] MEDS: PANTOPRAZOLE 20 MG TAB PO SCH (11:39)
[2021-06-17] MEDS: TORSEMIDE 10 MG TAB PO SCH (11:39)
[2021-06-17] MEDS: MAGNESIUM OXIDE 400 MG TAB PO SCH (11:39)
[2021-06-17] MEDS: carvediloL 25 MG TAB PO SCH ×2 (11:41→21:04)
[2021-06-17] MEDS: DULoxetine 30 MG CAP PO SCH (11:41)
[2021-06-17] MEDS: FLUTICASONE PROPIONATE NASAL SPRAY 16 GM NS SCH ×2 (11:42→21:06)
[2021-06-17] MEDS: HALOPERIDOL LACTATE 5 MG/1 ML INJ IM SCH ×2 (11:44→21:06)
[2021-06-17] MEDS: POTASSIUM CHLORIDE ER 10 MEQ TAB PO SCH (11:49)
[2021-06-17] MEDS: WARFARIN 5 MG TAB PO SCH (18:35)
[2021-06-17] MEDS: hydrOXYzine PAMOATE 25 MG CAP PO PRN (21:04)
[2021-06-17] MEDS ORDERED: HALOPERIDOL 5 MG TAB PO SCH (22:00)
[2021-06-18 06:00] LABS: INR 1.72 (0.87-1.13)
[2021-06-18] MEDS: LEVOTHYROXINE 88 MCG TAB PO SCH (06:03)
--- NOTE | 2021-06-18 09:34 | Progress Note ---
Subjective Date of service: 06/18/21 Subjective Comment: 06/15/2021:The patient was seen in the activity room, she is calm but paranoid. The patient states her medications are poisoned " they are trying to kill me." She endorses visual hallucinations " sing flashing colors and lights." The pepe ent reports having intermittent auditory hallucinations. Start patient on Haldol 5mg po BID, please give IM if patient refuse. 06/16/2021: The patient was seen eating breakfast. She states " I'm doing better, I slept better last night." She continue to be confused and paranoid. She reports having intermittent auditory hallucinations and denies suicidal/homicidal ideation. 06/17/2021: The patient was seen in her room, she reports feeling better but complained of generalized pain. The patient states sleep and appetite as good. She states she wants to see her son and her grand children. The patient denies having any current suicidal/homicidal ideation. The patient denies hallucinations. 06/18/2021: The patient was seen today and she reports doing well. The patient reports that she wants to be placed back on Zyprexa since it works for her and also was effective for her late brother that had schizophrenia. She reports sleep and appetite as good. She denies any current suicidal/homicidal ideation and denies hallucinations. REVIEW OF SYSTEMS Constitutional: Negative for weight loss ENT: Negative for stridor Respiratory: Negative for cough or hemoptysis All other systems reviewed and are negative MENTAL STATUS EXAMINATION General Appearance and Behavior: Age appropriate, good hygiene, wearing appropriate clothes, fair eye contact Cooperation: Participating/engaged, but Guarded Psychomotor Behavior: Psychomotor normal Mood:"fine" Affect and affective range: congruent with stated mood Thought Process: Goal directed Thought Content: Not suicidal Speech: normal tone and pace Suicidal Ideation:Denies Homicidal Ideation: Denies Hallucinations: Denies Impulse Control: Questionable Insight and Judgment: Limited insight and judgment Memory: Normal Attention: Normal Orientation: Alert and oriented Assessment and Plan (1) Schizophrenia Current Visit: Yes Status: Acute Treatment Plan Patient admitted for inpatient psychiatric evaluation, medication adjustment and close monitoring The patient's behavior, mood, sleep and appetite will be closely monitored. Patient enrolled in individual and group therapeutic sessions and encouraged to attend. Patient provided with a safe and structured environment. Patient's physical health needs will be addressed by the Hospitalist. Hospitalist Consulted Labs including CBC, CMP, Lipid profile and Hemoglobin A1C levels ordered for baseline reference Social Assessment will be completed and the Terminal Computer Operator will work with patient and family to ensure a suitable and safe disposition Medication adjustment will be made as clinically indicated Elevated INR/PT- Medical team to evaluate Discontinue Haldol 10 mg po BID Start Xyprexa 15 mgpo QHS Continued Home medications Usual Wellness Protestant/Preservation: - Start Trazodone 50 mg po QHS & 50 mg po QHS PRN between 10 PM & 2 AM for insomnia - Start Melatonin 5 mg po QHS to promote circadian rhythm The patient agreed on the treatment plan, understood the risk, benefit, alternative treatment, potential consequence of no treatment, and gave informed consent. Estimated days: 4 Post hospital care: primary care provider, psychiatric provider Case staffed with Dr. Mullins Reaction to Hospitalization: Accepting Medications and Allergies Medications and Allergies Medications and Allergies Allergies Allergy/AdvReac Type Severity Reaction Status Date / Time amlodipine Allergy Unknown Verified 06/14/21 16:46 apixaban Allergy Rash Verified 06/14/21 16:46 atenolol Allergy Rash Verified 06/14/21 16:46 cefdinir Allergy Unknown Verified 06/14/21 16:46 celecoxib Allergy Rash Verified 06/14/21 16:46 cephalexin Allergy Rash Verified 06/14/21 16:46 digoxin Allergy Rash Verified 06/14/21 16:46 doxycycline Allergy Rash Verified 06/14/21 16:46 isosorbide Allergy Rash Verified 06/14/21 16:46 Latex, Natural Rubber Allergy Rash Verified 06/14/21 16:46 hamilton Allergy Unknown Verified 06/14/21 16:46 lisinopril Allergy Unknown Verified 06/14/21 16:46 methylprednisolone Allergy Unknown Verified 06/14/21 16:46 Penicillins Allergy Rash Verified 06/14/21 16:46 pregabalin Allergy Unknown Verified 06/14/21 16:46 propranolol Allergy Unknown Verified 06/14/21 16:46 rivaroxaban Allergy Unknown Verified 06/14/21 16:46 Sulfa (Sulfonamide Allergy Unknown Verified 06/14/21 16:46 Antibiotics) sulfamethoxazole Allergy Unknown Verified 06/14/21 16:46 [From Sulfamethoxazole-Trimethoprim] trimethoprim Allergy Unknown Verified 06/14/21 16:46 [From Sulfamethoxazole-Trimethoprim] Home Medications Medication Instructions Recorded Confirmed Last Taken Type ALPRAZolam [Xanax TAB] 0.25 mg PO 4XD PRN 06/13/21 06/13/21 Unknown History Albuterol Sulfate [Proair 90 mcg IH Q4HR PRN 06/13/21 06/13/21 Unknown History Respiclick] AtorvaSTATin [Lipitor] 20 mg PO BID 06/13/21 06/14/21 Unknown History Biotin [Biotin 1] 2,500 mcg PO DAILY 06/14/21 06/14/21 Unknown History Cholecalciferol (Vitamin D3) 2,000 unit PO QDAY 06/14/21 06/14/21 Unknown History [Vitamin D3 2,000 UNIT CAP] Cyanocobalamin (Vitamin B-12) 500 mcg PO DAILY 06/14/21 06/14/21 Unknown History [Vitamin B-12] Cyclobenzaprine [Flexeril] 10 mg PO BID PRN 06/14/21 06/14/21 Unknown History Duloxetine HCl 60 mg PO DAILY 06/14/21 06/14/21 Unknown History Fluticasone [Flonase] 1 spray NS BID 06/14/21 06/14/21 Unknown History Levothyroxine [Synthroid] 88 mcg PO QAM 06/14/21 06/14/21 Unknown History Loratadine [Allergy Relief] 10 mg PO DAILY 06/14/21 06/14/21 Unknown History Magnesium Oxide [Mag-Ox] 400 mg PO QDAY 06/14/21 06/14/21 Unknown History OLANZapine [Zyprexa] 15 mg PO HS 06/14/21 06/14/21 Unknown History OLANzapine [ZyPREXA] 2.5 mg PO HS 06/14/21 06/14/21 Unknown History Omeprazole 20 mg PO DAILY 06/14/21 06/14/21 Unknown History Potassium Chloride [K-Dur] 20 meq PO QDAY 06/14/21 06/14/21 Unknown History Sodium Chloride 0.65% Nasal [Deep 2 spray NS 4XD PRN 06/14/21 06/14/21 Unknown History Sea] Tiotropium [place] [Spiriva 2.5 mcg IH DAILY 06/14/21 06/14/21 Unknown History Respimat] Torsemide [Demadex] 20 mg PO HS 06/14/21 06/14/21 Unknown History Warfarin [Coumadin] 2.5 mg PO 5XW 06/14/21 06/14/21 Unknown History Warfarin [Coumadin] 5 mg PO 2XW 06/14/21 06/14/21 Unknown History carvediloL [Coreg] 25 mg PO BID 06/14/21 06/14/21 Unknown History hydrOXYzine PAMOATE [Vistaril] 25 mg PO Q4HR PRN 06/14/21 06/14/21 Unknown History oxyCODONE /ACETAMINOPHEN [Percocet 1 tab PO TID PRN 06/14/21 06/14/21 Unknown History 5/325] Active Meds: Active Medications Albuterol (Albuterol 2.5 Mg/3 Ml Nebu) 2.5 mg IH Q4HRT PRN PRN Reason: Shortness Of Breath Alprazolam (Alprazolam 0.25 Mg Tab) 0.25 mg PO Q6H PRN PRN Reason: anxiety Atorvastatin Calcium (Atorvastatin 20 Mg Tab) 20 mg PO BID [facility] Last Admin: 06/17/21 21:04 Dose: 20 mg Documented by: Benztropine Mesylate (Benztropine 0.5 Mg Tab) 0.5 mg PO DAILY [facility] Last Admin: 06/17/21 11:38 Dose: 0.5 mg Documented by: Carvedilol (Carvedilol 25 Mg Tab) 25 mg PO BID [facility] Last Admin: 06/17/21 21:04 Dose: 25 mg Documented by: Cetirizine HCl (Cetirizine 10 Mg Tab) 10 mg PO DAILY [facility] Last Admin: 06/17/21 11:38 Dose: 10 mg Documented by: Cholecalciferol (Cholecalciferol (Vit D3) 1000 Unit (25 Mcg) Tab) 2,000 unit PO DAILY [facility] Last Admin: 06/17/21 11:38 Dose: 2,000 unit Documented by: Cyanocobalamin (Cyanocobalamin (Vit B-12) 1000 Mcg Tab) 500 mcg PO DAILY [facility] Last Admin: 06/17/21 11:37 Dose: 500 mcg Documented by: Cyclobenzaprine HCl (Cyclobenzaprine 10 Mg Tab) 10 mg PO BID PRN PRN Reason: Muscle Spasm Duloxetine HCl (Duloxetine 30 Mg Cap) 60 mg PO DAILY [facility] Last Admin: 06/17/21 11:41 Dose: 60 mg Documented by: Fluticasone Propionate (Fluticasone Propionate Nasal [place] 16 Gm) 50 mcg NS BID [facility] Last Admin: 06/17/21 21:06 Dose: 50 mcg Documented by: Hydroxyzine Pamoate (Hydroxyzine Pamoate 25 Mg Cap) 25 mg PO Q4HR PRN PRN Reason: anxiety Last Admin: 06/17/21 21:04 Dose: 25 mg Documented by: Levothyroxine Sodium (Levothyroxine 88 Mcg Tab) 88 mcg PO QAM@0600 [facility] Last Admin: 06/18/21 06:03 Dose: 88 mcg Documented by: Magnesium Oxide (Magnesium Oxide 400 Mg Tab) 400 mg PO QDAY [facility] Last Admin: 06/17/21 11:39 Dose: 400 mg Documented by: Olanzapine (Olanzapine 7.5 Mg Tab) 15 mg PO QHS [facility] Oxycodone/Acetaminophen (Oxycodone /Acetaminophen 5-325mg Tab) 1 tab PO TID PRN PRN Reason: PAIN Pantoprazole Sodium (Pantoprazole 20 Mg Tab) 20 mg PO DAILY [facility] Last Admin: 06/17/21 11:39 Dose: 20 mg Documented by: Potassium Chloride (Potassium Chloride Er 10 Meq Tab) 20 meq PO QDAY [facility] Last Admin: 06/17/21 11:49 Dose: 20 meq Documented by: Sodium Chloride (Sodium Chloride Nasal [place] 44ml) 2 spray NS 4XD PRN PRN Reason: congestion Tiotropium [place] (Tiotropium 18 Mcg Cap Inhalation) 1 puff IH Q24HRT [facility] Last Admin: 06/17/21 08:36 Dose: 1 puff Documented by: Torsemide (Torsemide 10 Mg Tab) 20 mg PO 0800 [facility] Last Admin: 06/17/21 11:39 Dose: 20 mg Documented by: Warfarin Sodium (Warfarin 2.5 Mg Tab) 2.5 mg PO SuTuWeFrSa [facility]; Protocol Last Admin: 06/16/21 17:22 Dose: 2.5 mg Documented by: Warfarin Sodium (Warfarin 5 Mg Tab) 5 mg PO MoTh [facility]; Protocol Last Admin: 06/17/21 18:35 Dose: 5 mg Documented by: Results - Results Labs/Vitals: Laboratory Last Values WBC 10.3 K/mm3 (4.5-11.0) 06/15/21 17:10 RBC 5.28 M/mm3 (3.65-5.03) H 06/15/21 17:10 Hgb 13.9 gm/dl (10.1-14.3) 06/15/21 17:10 Hct 40.7 % (30.3-42.9) 06/15/21 17:10 MCV 77 fl (79-97) L 06/15/21 17:10 MCH 26 pg (28-32) L 06/15/21 17:10 MCHC 34 % (30-34) 06/15/21 17:10 RDW 15.9 % (13.2-15.2) H 06/15/21 17:10 Plt Count 327 K/mm3 (140-440) 06/15/21 17:10 Lymph % (Auto) 11.5 % (13.4-35.0) L 06/15/21 17:10 Hinds % (Auto) 9.8 % (0.0-7.3) H 06/15/21 17:10 Eos % (Auto) 0.1 % (0.0-4.3) 06/15/21 17:10 Baso % (Auto) 0.3 % (0.0-1.8) 06/15/21 17:10 Lymph # (Auto) 1.2 K/mm3 (1.2-5.4) 06/15/21 17:10 Hinds # (Auto) 1.0 K/mm3 (0.0-0.8) H 06/15/21 17:10 Eos # (Auto) 0.0 K/mm3 (0.0-0.4) 06/15/21 17:10 Baso # (Auto) 0.0 K/mm3 (0.0-0.1) 06/15/21 17:10 Seg Neutrophils % 78.3 % (40.0-70.0) H 06/15/21 17:10 Seg Neutrophils # 8.0 K/mm3 (1.8-7.7) H 06/15/21 17:10 PT 20.6 Sec. (12.2-14.9) H 06/18/21 05:26 INR 1.72 (0.87-1.13) H 06/18/21 05:26 Sodium 137 mmol/L (137-145) 06/15/21 17:10 Potassium 3.7 mmol/L (3.6-5.0) 06/15/21 17:10 Chloride 98.4 mmol/L (98-107) 06/15/21 17:10 Carbon Dioxide 20 mmol/L (22-30) L 06/15/21 17:10 Anion Gap 22 mmol/L 06/15/21 17:10 BUN 16 mg/dL (7-17) 06/15/21 17:10 Creatinine 0.9 mg/dL (0.6-1.2) 06/15/21 17:10 Estimated GFR > 60 ml/min 06/15/21 17:10 BUN/Creatinine Ratio 18 % 06/15/21 17:10 Glucose 138 mg/dL (65-100) H 06/15/21 17:10 POC Glucose 98 mg/dL (70-105) 06/14/21 07:24 Hemoglobin A1c 6.1 % (4-6) H 06/15/21 17:10 Calcium 9.7 mg/dL (8.4-10.2) 06/15/21 17:10 Total Bilirubin 1.00 mg/dL (0.1-1.2) 06/15/21 17:10 AST 28 units/L (5-40) 06/15/21 17:10 ALT 17 units/L (7-56) 06/15/21 17:10 Alkaline Phosphatase 149 units/L (35-129) H 06/15/21 17:10 Total Protein 8.8 g/dL (6.3-8.2) H 06/15/21 17:10 Albumin 4.2 g/dL (3.9-5) 06/15/21 17:10 Albumin/Globulin Ratio 0.9 % 06/15/21 17:10 Triglycerides 87 mg/dL (2-149) 06/15/21 17:10 Cholesterol 143 mg/dL (50-199) 06/15/21 17:10 LDL Cholesterol Direct 69 mg/dL (50-130) 06/15/21 17:10 HDL Cholesterol 58 mg/dL (40-59) 06/15/21 17:10 Cholesterol/HDL Ratio 2.46 % 06/15/21 17:10 TSH 1.570 mlU/mL (0.270-4.200) 06/15/21 17:10 Last Vital Signs Temp 98.8 F 06/17/21 19:55 Pulse 67 06/17/21 21:04 Resp 18 06/17/21 19:55 BP 125/61 06/17/21 21:04 Pulse Ox 93 06/17/21 19:55
[2021-06-18] MEDS ORDERED: ARIPiprazole 10 MG TAB PO SCH (10:00)
[2021-06-18] MEDS: TORSEMIDE 10 MG TAB PO SCH (10:19)
[2021-06-18] MEDS: CETIRIZINE 10 MG TAB PO SCH (10:20)
[2021-06-18] MEDS: BENZTROPINE 0.5 MG TAB PO SCH (10:22)
[2021-06-18] MEDS: carvediloL 25 MG TAB PO SCH ×2 (10:23→21:51)
[2021-06-18] MEDS: DULoxetine 30 MG CAP PO SCH (10:24)
[2021-06-18] MEDS: FLUTICASONE PROPIONATE NASAL SPRAY 16 GM NS SCH ×2 (10:25→21:52)
[2021-06-18] MEDS: POTASSIUM CHLORIDE ER 10 MEQ TAB PO SCH (10:26)
[2021-06-18] MEDS: MAGNESIUM OXIDE 400 MG TAB PO SCH (10:27)
[2021-06-18] MEDS: PANTOPRAZOLE 20 MG TAB PO SCH (10:27)
[2021-06-18] MEDS: CHOLECALCIFEROL (VIT D3) 1000 UNIT (25 mcg) TAB PO SCH (10:28)
[2021-06-18] MEDS: CYANOCOBALAMIN (VIT B-12) 1000 MCG TAB PO SCH (10:29)
[2021-06-18] MEDS: oxyCODONE /ACETAMINOPHEN 5-325MG TAB PO PRN ×2 (10:30→21:52)
[2021-06-18] MEDS: TIOTROPIUM 18 MCG CAP INHALATION IH SCH (10:55)
[2021-06-18] MEDS: WARFARIN 2.5 MG TAB PO SCH (18:19)
[2021-06-18] MEDS: hydrOXYzine PAMOATE 25 MG CAP PO PRN (21:51)
[2021-06-19 05:45] LABS: INR 1.82 (0.87-1.13)
[2021-06-19] MEDS: LEVOTHYROXINE 88 MCG TAB PO SCH (06:16)
[2021-06-19] MEDS: TIOTROPIUM 18 MCG CAP INHALATION IH SCH (09:20)
[2021-06-19] MEDS: FLUTICASONE PROPIONATE NASAL SPRAY 16 GM NS SCH ×2 (10:14→21:01)
[2021-06-19] MEDS: TORSEMIDE 10 MG TAB PO SCH (10:14)
[2021-06-19] MEDS: POTASSIUM CHLORIDE ER 10 MEQ TAB PO SCH (10:15)
[2021-06-19] MEDS: CYANOCOBALAMIN (VIT B-12) 1000 MCG TAB PO SCH (10:15)
[2021-06-19] MEDS: BENZTROPINE 0.5 MG TAB PO SCH (10:16)
[2021-06-19] MEDS: carvediloL 25 MG TAB PO SCH ×2 (10:16→21:00)
[2021-06-19] MEDS: PANTOPRAZOLE 20 MG TAB PO SCH (10:16)
[2021-06-19] MEDS: CETIRIZINE 10 MG TAB PO SCH (10:16)
[2021-06-19] MEDS: CHOLECALCIFEROL (VIT D3) 1000 UNIT (25 mcg) TAB PO SCH (10:16)
[2021-06-19] MEDS: MAGNESIUM OXIDE 400 MG TAB PO SCH (10:16)
[2021-06-19] MEDS: DULoxetine 30 MG CAP PO SCH (10:16)
--- NOTE | 2021-06-19 12:35 | Progress Note ---
Subjective Date of service: 06/19/21 Subjective Comment: :The patient was seen in the activity room, she is calm but paranoid. The patient states her medications are poisoned " they are trying to kill me." She endorses visual hallucinations " sing flashing colors and lights." The patient reports having intermittent auditory hallucinations. Start patient on Haldol 5mg po BID, please give IM if patient refuse. 06/16/2021: The patient was seen eating breakfast. She states " I'm doing better, I slept better last night." She continue to be confused and paranoid. She reports having intermittent auditory hallucinations and denies suicidal/homicidal ideation. 06/17/2021: The patient was seen in her room, she reports feeling better but complained of generalized pain. The patient states sleep and appetite as good. She states she wants to see her son and her grand children. The patient denies having any current suicidal/homicidal ideation. The patient denies hallucinations. 06/18/2021: The patient was seen today and she reports doing well. The patient reports that she wants to be placed back on Zyprexa since it works for her and also was effective for her late brother that had schizophrenia. She reports sleep and appetite as good. She denies any current suicidal/homicidal ideation and denies hallucinations. 06/19/2021: The patient was seen this morning, she was tearful. She reports mood as " rebellious, I don't want to stay here, I want to go home. She complained of back and lower extremity pain. She denies any current suicidal ideation and denies hallucinations. REVIEW OF SYSTEMS Constitutional: Negative for weight loss ENT: Negative for stridor Respiratory: Negative for cough or hemoptysis All other systems reviewed and are negative MENTAL STATUS EXAMINATION General Appearance and Behavior: Age appropriate, good hygiene, wearing appropriate clothes, fair eye contact Cooperation: Participating/engaged, but Guarded Psychomotor Behavior: Psychomotor normal Mood:"rebellious" Affect and affective range: congruent with stated mood Thought Process: Goal directed Thought Content: Not suicidal Speech: normal tone and pace Suicidal Ideation:Denies Homicidal Ideation: Denies Hallucinations: Denies Impulse Control: Questionable Insight and Judgment: Limited insight and judgment Memory: Normal Attention: Normal Orientation: Alert and oriented Assessment and Plan (1) Schizophrenia Current Visit: Yes Status: Acute Treatment Plan Patient admitted for inpatient psychiatric evaluation, medication adjustment and close monitoring The patient's behavior, mood, sleep and appetite will be closely monitored. Patient enrolled in individual and group therapeutic sessions and encouraged to attend. Patient provided with a safe and structured environment. Patient's physical health needs will be addressed by the Hospitalist. Hospitalist Consulted Labs including CBC, CMP, Lipid profile and Hemoglobin A1C levels ordered for baseline reference Social Assessment will be completed and the Thermospray Operator will work with patien t and family to ensure a suitable and safe disposition Medication adjustment will be made as clinically indicated Elevated INR/PT- Medical team to evaluate Discontinue Haldol 10 mg po BID Continue Xyprexa 15 mgpo QHS Continued Home medications Usual [facility]/Preservation: - Start Trazodone 50 mg po QHS & 50 mg po QHS PRN between 10 PM & 2 AM for i nsomnia - Start Melatonin 5 mg po QHS to promote circadian rhythm The patient agreed on the treatment plan, understood the risk, benefit, alternative treatment, potential consequence of no treatment, and gave informed consent. Estimated days: 4 Post hospital care: primary care provider, psychiatric provider Case staffed with Dr. Mullins Reaction to Hospitalization: Accepting Medications and Allergies Medications and Allergies Medications and Allergies Medications and Allergies Allergies Allergy/AdvReac Type Severity Reaction Status Date / Time amlodipine Allergy Unknown Verified 06/14/21 16:46 apixaban Allergy Rash Verified 06/14/21 16:46 atenolol Allergy Rash Verified 06/14/21 16:46 cefdinir Allergy Unknown Verified 06/14/21 16:46 celecoxib Allergy Rash Verified 06/14/21 16:46 cephalexin Allergy Rash Verified 06/14/21 16:46 digoxin Allergy Rash Verified 06/14/21 16:46 doxycycline Allergy Rash Verified 06/14/21 16:46 isosorbide Allergy Rash Verified 06/14/21 16:46 Latex, Natural Rubber Allergy Rash Verified 06/14/21 16:46 [place] Allergy Unknown Verified 06/14/21 16:46 lisinopril Allergy Unknown Verified 06/14/21 16:46 methylprednisolone Allergy Unknown Verified 06/14/21 16:46 Penicillins Allergy Rash Verified 06/14/21 16:46 pregabalin Allergy Unknown Verified 06/14/21 16:46 propranolol Allergy Unknown Verified 06/14/21 16:46 rivaroxaban Allergy Unknown Verified 06/14/21 16:46 Sulfa (Sulfonamide Allergy Unknown Verified 06/14/21 16:46 Antibiotics) sulfamethoxazole Allergy Unknown Verified 06/14/21 16:46 [From Sulfamethoxazole-Trimethoprim] trimethoprim Allergy Unknown Verified 06/14/21 16:46 [From Sulfamethoxazole-Trimethoprim] Home Medications Medication Instructions Recorded Confirmed Last Taken Type ALPRAZolam [Xanax TAB] 0.25 mg PO 4XD PRN 06/13/21 06/13/21 Unknown History Albuterol Sulfate [Proair 90 mcg IH Q4HR PRN 06/13/21 06/13/21 Unknown History Respiclick] AtorvaSTATin [Lipitor] 20 mg PO BID 06/13/21 06/14/21 Unknown History Biotin [Biotin 1] 2,500 mcg PO DAILY 06/14/21 06/14/21 Unknown History Cholecalciferol (Vitamin D3) 2,000 unit PO QDAY 06/14/21 06/14/21 Unknown History [Vitamin D3 2,000 UNIT CAP] Cyanocobalamin (Vitamin B-12) 500 mcg PO DAILY 06/14/21 06/14/21 Unknown History [Vitamin B-12] Cyclobenzaprine [Flexeril] 10 mg PO BID PRN 06/14/21 06/14/21 Unknown History Duloxetine HCl 60 mg PO DAILY 06/14/21 06/14/21 Unknown History Fluticasone [Flonase] 1 spray NS BID 06/14/21 06/14/21 Unknown History Levothyroxine [Synthroid] 88 mcg PO QAM 06/14/21 06/14/21 Unknown History Loratadine [Allergy Relief] 10 mg PO DAILY 06/14/21 06/14/21 Unknown History Magnesium Oxide [Mag-Ox] 400 mg PO QDAY 06/14/21 06/14/21 Unknown History OLANZapine [Zyprexa] 15 mg PO HS 06/14/21 06/14/21 Unknown History OLANzapine [ZyPREXA] 2.5 mg PO HS 06/14/21 06/14/21 Unknown History Omeprazole 20 mg PO DAILY 06/14/21 06/14/21 Unknown History Potassium Chloride [K-Dur] 20 meq PO QDAY 06/14/21 06/14/21 Unknown History Sodium Chloride 0.65% Nasal [Deep 2 spray NS 4XD PRN 06/14/21 06/14/21 Unknown History Sea] Tiotropium [place] [Spiriva 2.5 mcg IH DAILY 06/14/21 06/14/21 Unknown History Respimat] Torsemide [Demadex] 20 mg PO HS 06/14/21 06/14/21 Unknown History Warfarin [Coumadin] 2.5 mg PO 5XW 06/14/21 06/14/21 Unknown History Warfarin [Coumadin] 5 mg PO 2XW 06/14/21 06/14/21 Unknown History carvediloL [Coreg] 25 mg PO BID 06/14/21 06/14/21 Unknown History hydrOXYzine PAMOATE [Vistaril] 25 mg PO Q4HR PRN 06/14/21 06/14/21 Unknown History oxyCODONE /ACETAMINOPHEN [Percocet 1 tab PO TID PRN 06/14/21 06/14/21 Unknown History 5/325] Active Meds: Active Medications Albuterol (Albuterol 2.5 Mg/3 Ml Nebu) 2.5 mg IH Q4HRT PRN PRN Reason: Shortness Of Breath Alprazolam (Alprazolam 0.25 Mg Tab) 0.25 mg PO Q6H PRN PRN Reason: anxiety Atorvastatin Calcium (Atorvastatin 20 Mg Tab) 20 mg PO BID [facility] Last Admin: 06/19/21 10:15 Dose: 20 mg Documented by: Benztropine Mesylate (Benztropine 0.5 Mg Tab) 0.5 mg PO DAILY [facility] Last Admin: 06/19/21 10:16 Dose: 0.5 mg Documented by: Carvedilol (Carvedilol 25 Mg Tab) 25 mg PO BID [facility] Last Admin: 06/19/21 10:16 Dose: 25 mg Documented by: Cetirizine HCl (Cetirizine 10 Mg Tab) 10 mg PO DAILY [facility] Last Admin: 06/19/21 10:16 Dose: 10 mg Documented by: Cholecalciferol (Cholecalciferol (Vit D3) 1000 Unit (25 Mcg) Tab) 2,000 unit PO DAILY [facility] Last Admin: 06/19/21 10:16 Dose: 2,000 unit Documented by: Cyanocobalamin (Cyanocobalamin (Vit B-12) 1000 Mcg Tab) 500 mcg PO DAILY [facility] Last Admin: 06/19/21 10:15 Dose: 500 mcg Documented by: Cyclobenzaprine HCl (Cyclobenzaprine 10 Mg Tab) 10 mg PO BID PRN PRN Reason: Muscle Spasm Duloxetine HCl (Duloxetine 30 Mg Cap) 60 mg PO DAILY [facility] Last Admin: 06/19/21 10:16 Dose: 60 mg Documented by: Fluticasone Propionate (Fluticasone Propionate Nasal [place] 16 Gm) 50 mcg NS BID [facility] Last Admin: 06/19/21 10:14 Dose: 50 mcg Documented by: Hydroxyzine Pamoate (Hydroxyzine Pamoate 25 Mg Cap) 25 mg PO Q4HR PRN PRN Reason: anxiety Last Admin: 06/18/21 21:51 Dose: 25 mg Documented by: Levothyroxine Sodium (Levothyroxine 88 Mcg Tab) 88 mcg PO QAM@0600 [facility] Last Admin: 06/19/21 06:16 Dose: 88 mcg Documented by: Magnesium Oxide (Magnesium Oxide 400 Mg Tab) 400 mg PO QDAY [facility] Last Admin: 06/19/21 10:16 Dose: 400 mg Documented by: Olanzapine (Olanzapine 7.5 Mg Tab) 15 mg PO QHS [facility] Last Admin: 06/18/21 21:51 Dose: 15 mg Documented by: Oxycodone/Acetaminophen (Oxycodone /Acetaminophen 5-325mg Tab) 1 tab PO TID PRN PRN Reason: PAIN Last Admin: 06/18/21 21:52 Dose: 1 tab Documented by: Pantoprazole Sodium (Pantoprazole 20 Mg Tab) 20 mg PO DAILY [facility] Last Admin: 06/19/21 10:16 Dose: 20 mg Documented by: Potassium Chloride (Potassium Chloride Er 10 Meq Tab) 20 meq PO QDAY [facility] Last Admin: 06/19/21 10:15 Dose: 20 meq Documented by: Sodium Chloride (Sodium Chloride Nasal [place] 44ml) 2 spray NS 4XD PRN PRN Reason: congestion Tiotropium [place] (Tiotropium 18 Mcg Cap Inhalation) 1 puff IH Q24HRT [facility] Last Admin: 06/19/21 09:20 Dose: 1 puff Documented by: Torsemide (Torsemide 10 Mg Tab) 20 mg PO 0800 [facility] Last Admin: 06/19/21 10:14 Dose: 20 mg Documented by: Warfarin Sodium (Warfarin 2.5 Mg Tab) 2.5 mg PO SuTuWeFrSa [facility]; Protocol Last Admin: 06/18/21 18:19 Dose: 2.5 mg Documented by: Warfarin Sodium (Warfarin 5 Mg Tab) 5 mg PO MoTh ASHER; Protocol Last Admin: 06/17/21 18:35 Dose: 5 mg Documented by: Results - Results Labs/Vitals: Laboratory Last Values WBC 10.3 K/mm3 (4.5-11.0) 06/15/21 17:10 RBC 5.28 M/mm3 (3.65-5.03) H 06/15/21 17:10 Hgb 13.9 gm/dl (10.1-14.3) 06/15/21 17:10 Hct 40.7 % (30.3-42.9) 06/15/21 17:10 MCV 77 fl (79-97) L 06/15/21 17:10 MCH 26 pg (28-32) L 06/15/21 17:10 MCHC 34 % (30-34) 06/15/21 17:10 RDW 15.9 % (13.2-15.2) H 06/15/21 17:10 Plt Count 327 K/mm3 (140-440) 06/15/21 17:10 Lymph % (Auto) 11.5 % (13.4-35.0) L 06/15/21 17:10 [place] % (Auto) 9.8 % (0.0-7.3) H 06/15/21 17:10 Eos % (Auto) 0.1 % (0.0-4.3) 06/15/21 17:10 Baso % (Auto) 0.3 % (0.0-1.8) 06/15/21 17:10 Lymph # (Auto) 1.2 K/mm3 (1.2-5.4) 06/15/21 17:10 [place] # (Auto) 1.0 K/mm3 (0.0-0.8) H 06/15/21 17:10 Eos # (Auto) 0.0 K/mm3 (0.0-0.4) 06/15/21 17:10 Baso # (Auto) 0.0 K/mm3 (0.0-0.1) 06/15/21 17:10 Seg Neutrophils % 78.3 % (40.0-70.0) H 06/15/21 17:10 Seg Neutrophils # 8.0 K/mm3 (1.8-7.7) H 06/15/21 17:10 PT 21.5 Sec. (12.2-14.9) H 06/19/21 05:07 INR 1.82 (0.87-1.13) H 06/19/21 05:07 Sodium 137 mmol/L (137-145) 06/15/21 17:10 Potassium 3.7 mmol/L (3.6-5.0) 06/15/21 17:10 Chloride 98.4 mmol/L (98-107) 06/15/21 17:10 Carbon Dioxide 20 mmol/L (22-30) L 06/15/21 17:10 Anion Gap 22 mmol/L 06/15/21 17:10 BUN 16 mg/dL (7-17) 06/15/21 17:10 Creatinine 0.9 mg/dL (0.6-1.2) 06/15/21 17:10 Estimated GFR > 60 ml/min 06/15/21 17:10 BUN/Creatinine Ratio 18 % 06/15/21 17:10 Glucose 138 mg/dL (65-100) H 06/15/21 17:10 POC Glucose 98 mg/dL (70-105) 06/14/21 07:24 Hemoglobin A1c 6.1 % (4-6) H 06/15/21 17:10 Calcium 9.7 mg/dL (8.4-10.2) 06/15/21 17:10 Total Bilirubin 1.00 mg/dL (0.1-1.2) 06/15/21 17:10 AST 28 units/L (5-40) 06/15/21 17:10 ALT 17 units/L (7-56) 06/15/21 17:10 Alkaline Phosphatase 149 units/L (35-129) H 06/15/21 17:10 Total Protein 8.8 g/dL (6.3-8.2) H 06/15/21 17:10 Albumin 4.2 g/dL (3.9-5) 06/15/21 17:10 Albumin/Globulin Ratio 0.9 % 06/15/21 17:10 Triglycerides 87 mg/dL (2-149) 06/15/21 17:10 Cholesterol 143 mg/dL (50-199) 06/15/21 17:10 LDL Cholesterol Direct 69 mg/dL (50-130) 06/15/21 17:10 HDL Cholesterol 58 mg/dL (40-59) 06/15/21 17:10 Cholesterol/HDL Ratio 2.46 % 06/15/21 17:10 TSH 1.570 mlU/mL (0.270-4.200) 06/15/21 17:10 Last Vital Signs Temp 98.5 F 06/19/21 09:21 Pulse 72 06/19/21 10:16 Resp 20 06/19/21 09:21 BP 124/61 06/19/21 10:16 Pulse Ox 97 06/19/21 09:21
[2021-06-19] MEDS: WARFARIN 2.5 MG TAB PO SCH (18:15)
[2021-06-19] MEDS: oxyCODONE /ACETAMINOPHEN 5-325MG TAB PO PRN (18:30)
[2021-06-19] MEDS: hydrOXYzine PAMOATE 25 MG CAP PO PRN (21:44)
[2021-06-20] MEDS: LEVOTHYROXINE 88 MCG TAB PO SCH (05:23)
--- NOTE | 2021-06-20 08:44 | Progress Note ---
Subjective Date of service: 06/20/21 Subjective Comment: 06/15/2021:The patient was seen in the activity room, she is calm but paranoid. The patient states her medications are poisoned " they are trying to kill me." She endorses visual hallucinations " sing flashing colors and lights." The patient reports having intermittent auditory hallucinations. Start patient on Haldol 5mg po BID, please give IM if patient refuse. 06/16/2021: The patient was seen eating breakfast. She states " I'm doing better, I slept better last night." She continue to be confused and paranoid. She reports having intermittent auditory hallucinations and denies suicidal/homicidal ideation. 06/17/2021: The patient was seen in her room, she reports feeling better but complained of generalized pain. The patient states sleep and appetite as good. She states she wants to see her son and her grand children. The patient denies having any current suicidal/homicidal ideation. The patient denies hallucinations. 06/18/2021: The patient was seen today and she reports doing well. The patient reports that she wants to be placed back on Zyprexa since it works for her and also was effective for her late brother that had schizophrenia. She reports sleep and appetite as good. She denies any current suicidal/homicidal ideation and denies hallucinations. 06/19/2021: The patient was seen this morning, she was tearful. She reports mood as " rebellious, I don't want to stay here, I want to go home. She complained of back and lower extremity pain. She denies any current suicidal ideation and denies hallucinations. 06/20/2021: The patient was seen this morning and she reports doing well. She states it was one year yesterday since her mother passed and she was happy to speak with her son. The patient states " I feel like I'm floating." She denies any current suicidal/homicidal ideation and denies hallucinations. REVIEW OF SYSTEMS Constitutional: Negative for weight loss ENT: Negative for stridor Respiratory: Negative for cough or hemoptysis All other systems reviewed and are negative MENTAL STATUS EXAMINATION General Appearance and Behavior: Age appropriate, good hygiene, wearing appropriate clothes, fair eye contact Cooperation: Participating/engaged, but Guarded Psychomotor Behavior: Psychomotor normal Mood:"doing well" Affect and affective range: congruent with stated mood Thought Process: Goal directed Thought Content: Not suicidal Speech: normal tone and pace Suicidal Ideation:Denies Homicidal Ideation: Denies Hallucinations: Denies Impulse Control: Questionable Insight and Judgment: Limited insight and fair judgment Memory: Normal Attention: Normal Orientation: Alert and oriented Assessment and Plan (1) Schizophrenia Current Visit: Yes Status: Acute Treatment Plan Patient admitted for inpatient psychiatric evaluation, medication adjustment and close monitoring The patient's behavior, mood, sleep and appetite will be closely monitored. Patient enrolled in individual and group therapeutic sessions and encouraged to attend. Patient provided with a safe and structured environment. Patient's physical health needs will be addressed by the Hospitalist. Hospitalist Consulted Labs including CBC, CMP, Lipid profile and Hemoglobin A1C levels ordered for baseline reference Social Assessment will be completed and the Computer Peripheral Equipment Operator will work with patient and family to ensure a suitable and safe disposition Medication adjustment will be made as clinically indicated Elevated INR/PT- Medical team to evaluate Discontinue Haldol 10 mg po BID Continue Xyprexa 15 mgpo QHS Continued Home medications Usual Wellness Buddhist/Preservation: - Start Trazodone 50 mg po QHS & 50 mg po QHS PRN between 10 PM & 2 AM for insomnia - Start Melatonin 5 mg po QHS to promote circadian rhythm The patient agreed on the treatment plan, understood the risk, benefit, alternative treatment, potential consequence of no treatment, and gave informed consent. Estimated days: 4 Post hospital care: primary care provider, psychiatric provider Case staffed with Dr. Mullins Reaction to Hospitalization: Accepting Medications and Allergies Medications and Allergies Allergies Allergy/AdvReac Type Severity Reaction Status Date / Time amlodipine Allergy Unknown Verified 06/14/21 16:46 apixaban Allergy Rash Verified 06/14/21 16:46 atenolol Allergy Rash Verified 06/14/21 16:46 cefdinir Allergy Unknown Verified 06/14/21 16:46 celecoxib Allergy Rash Verified 06/14/21 16:46 cephalexin Allergy Rash Verified 06/14/21 16:46 digoxin Allergy Rash Verified 06/14/21 16:46 doxycycline Allergy Rash Verified 06/14/21 16:46 isosorbide Allergy Rash Verified 06/14/21 16:46 Latex, Natural Rubber Allergy Rash Verified 06/14/21 16:46 [place] Allergy Unknown Verified 06/14/21 16:46 lisinopril Allergy Unknown Verified 06/14/21 16:46 methylprednisolone Allergy Unknown Verified 06/14/21 16:46 Penicillins Allergy Rash Verified 06/14/21 16:46 pregabalin Allergy Unknown Verified 06/14/21 16:46 propranolol Allergy Unknown Verified 06/14/21 16:46 rivaroxaban Allergy Unknown Verified 06/14/21 16:46 Sulfa (Sulfonamide Allergy Unknown Verified 06/14/21 16:46 Antibiotics) sulfamethoxazole Allergy Unknown Verified 06/14/21 16:46 [From Sulfamethoxazole-Trimethoprim] trimethoprim Allergy Unknown Verified 06/14/21 16:46 [From Sulfamethoxazole-Trimethoprim] Home Medications Medication Instructions Recorded Confirmed Last Taken Type ALPRAZolam [Xanax TAB] 0.25 mg PO 4XD PRN 06/13/21 06/13/21 Unknown History Albuterol Sulfate [Proair 90 mcg IH Q4HR PRN 06/13/21 06/13/21 Unknown History Respiclick] AtorvaSTATin [Lipitor] 20 mg PO BID 06/13/21 06/14/21 Unknown History Biotin [Biotin 1] 2,500 mcg PO DAILY 06/14/21 06/14/21 Unknown History Cholecalciferol (Vitamin D3) 2,000 unit PO QDAY 06/14/21 06/14/21 Unknown History [Vitamin D3 2,000 UNIT CAP] Cyanocobalamin (Vitamin B-12) 500 mcg PO DAILY 06/14/21 06/14/21 Unknown History [Vitamin B-12] Cyclobenzaprine [Flexeril] 10 mg PO BID PRN 06/14/21 06/14/21 Unknown History Duloxetine HCl 60 mg PO DAILY 06/14/21 06/14/21 Unknown History Fluticasone [Flonase] 1 spray NS BID 06/14/21 06/14/21 Unknown History Levothyroxine [Synthroid] 88 mcg PO QAM 06/14/21 06/14/21 Unknown History Loratadine [Allergy Relief] 10 mg PO DAILY 06/14/21 06/14/21 Unknown History Magnesium Oxide [Mag-Ox] 400 mg PO QDAY 06/14/21 06/14/21 Unknown History OLANZapine [Zyprexa] 15 mg PO HS 06/14/21 06/14/21 Unknown History OLANzapine [ZyPREXA] 2.5 mg PO HS 06/14/21 06/14/21 Unknown History Omeprazole 20 mg PO DAILY 06/14/21 06/14/21 Unknown History Potassium Chloride [K-Dur] 20 meq PO QDAY 06/14/21 06/14/21 Unknown History Sodium Chloride 0.65% Nasal [Deep 2 spray NS 4XD PRN 06/14/21 06/14/21 Unknown History Sea] Tiotropium [place] [Spiriva 2.5 mcg IH DAILY 06/14/21 06/14/21 Unknown History Respimat] Torsemide [Demadex] 20 mg PO HS 06/14/21 06/14/21 Unknown History Warfarin [Coumadin] 2.5 mg PO 5XW 06/14/21 06/14/21 Unknown History Warfarin [Coumadin] 5 mg PO 2XW 06/14/21 06/14/21 Unknown History carvediloL [Coreg] 25 mg PO BID 06/14/21 06/14/21 Unknown History hydrOXYzine PAMOATE [Vistaril] 25 mg PO Q4HR PRN 06/14/21 06/14/21 Unknown History oxyCODONE /ACETAMINOPHEN [Percocet 1 tab PO TID PRN 06/14/21 06/14/21 Unknown History 5/325] Active Meds: Active Medications Albuterol (Albuterol 2.5 Mg/3 Ml Nebu) 2.5 mg IH Q4HRT PRN PRN Reason: Shortness Of Breath Alprazolam (Alprazolam 0.25 Mg Tab) 0.25 mg PO Q6H PRN PRN Reason: anxiety Atorvastatin Calcium (Atorvastatin 20 Mg Tab) 20 mg PO BID [facility] Last Admin: 06/19/21 21:01 Dose: 20 mg Documented by: Benztropine Mesylate (Benztropine 0.5 Mg Tab) 0.5 mg PO DAILY [facility] Last Admin: 06/19/21 10:16 Dose: 0.5 mg Documented by: Carvedilol (Carvedilol 25 Mg Tab) 25 mg PO BID [facility] Last Admin: 06/19/21 21:00 Dose: 25 mg Documented by: Cetirizine HCl (Cetirizine 10 Mg Tab) 10 mg PO DAILY [facility] Last Admin: 06/19/21 10:16 Dose: 10 mg Documented by: Cholecalciferol (Cholecalciferol (Vit D3) 1000 Unit (25 Mcg) Tab) 2,000 unit PO DAILY [facility] Last Admin: 06/19/21 10:16 Dose: 2,000 unit Documented by: Cyanocobalamin (Cyanocobalamin (Vit B-12) 1000 Mcg Tab) 500 mcg PO DAILY [facility] Last Admin: 06/19/21 10:15 Dose: 500 mcg Documented by: Cyclobenzaprine HCl (Cyclobenzaprine 10 Mg Tab) 10 mg PO BID PRN PRN Reason: Muscle Spasm Duloxetine HCl (Duloxetine 30 Mg Cap) 60 mg PO DAILY [facility] Last Admin: 06/19/21 10:16 Dose: 60 mg Documented by: Fluticasone Propionate (Fluticasone Propionate Nasal [place] 16 Gm) 50 mcg NS BID [facility] Last Admin: 06/19/21 21:01 Dose: 50 mcg Documented by: Hydroxyzine Pamoate (Hydroxyzine Pamoate 25 Mg Cap) 25 mg PO Q4HR PRN PRN Reason: anxiety Last Admin: 06/19/21 21:44 Dose: 25 mg Documented by: Levothyroxine Sodium (Levothyroxine 88 Mcg Tab) 88 mcg PO QAM@0600 [facility] Last Admin: 06/20/21 05:23 Dose: 88 mcg Documented by: Magnesium Oxide (Magnesium Oxide 400 Mg Tab) 400 mg PO QDAY [facility] Last Admin: 06/19/21 10:16 Dose: 400 mg Documented by: Olanzapine (Olanzapine 5 Mg Tab) 15 mg PO QHS [facility] Last Admin: 06/19/21 21:44 Dose: 15 mg Documented by: Oxycodone/Acetaminophen (Oxycodone /Acetaminophen 5-325mg Tab) 1 tab PO TID PRN PRN Reason: PAIN Last Admin: 06/19/21 18:30 Dose: 1 tab Documented by: Pantoprazole Sodium (Pantoprazole 20 Mg Tab) 20 mg PO DAILY [facility] Last Admin: 06/19/21 10:16 Dose: 20 mg Documented by: Potassium Chloride (Potassium Chloride Er 10 Meq Tab) 20 meq PO QDAY [facility] Last Admin: 06/19/21 10:15 Dose: 20 meq Documented by: Sodium Chloride (Sodium Chloride Nasal [place] 44ml) 2 spray NS 4XD PRN PRN Reason: congestion Tiotropium [place] (Tiotropium 18 Mcg Cap Inhalation) 1 puff IH Q24HRT [facility] Last Admin: 06/19/21 09:20 Dose: 1 puff Documented by: Torsemide (Torsemide 10 Mg Tab) 20 mg PO 0800 [facility] Last Admin: 06/19/21 10:14 Dose: 20 mg Documented by: Warfarin Sodium (Warfarin 2.5 Mg Tab) 2.5 mg PO SuTuWeFrSa [facility]; Protocol Last Admin: 06/19/21 18:15 Dose: 2.5 mg Documented by: Warfarin Sodium (Warfarin 5 Mg Tab) 5 mg PO MoTh [facility]; Protocol Last Admin: 06/17/21 18:35 Dose: 5 mg Documented by: Results - Results Labs/Vitals: Laboratory Last Values WBC 10.3 K/mm3 (4.5-11.0) 06/15/21 17:10 RBC 5.28 M/mm3 (3.65-5.03) H 06/15/21 17:10 Hgb 13.9 gm/dl (10.1-14.3) 06/15/21 17:10 Hct 40.7 % (30.3-42.9) 06/15/21 17:10 MCV 77 fl (79-97) L 06/15/21 17:10 MCH 26 pg (28-32) L 06/15/21 17:10 MCHC 34 % (30-34) 06/15/21 17:10 RDW 15.9 % (13.2-15.2) H 06/15/21 17:10 Plt Count 327 K/mm3 (140-440) 06/15/21 17:10 Lymph % (Auto) 11.5 % (13.4-35.0) L 06/15/21 17:10 [place] % (Auto) 9.8 % (0.0-7.3) H 06/15/21 17:10 Eos % (Auto) 0.1 % (0.0-4.3) 06/15/21 17:10 Baso % (Auto) 0.3 % (0.0-1.8) 06/15/21 17:10 Lymph # (Auto) 1.2 K/mm3 (1.2-5.4) 06/15/21 17:10 [place] # (Auto) 1.0 K/mm3 (0.0-0.8) H 06/15/21 17:10 Eos # (Auto) 0.0 K/mm3 (0.0-0.4) 06/15/21 17:10 Baso # (Auto) 0.0 K/mm3 (0.0-0.1) 06/15/21 17:10 Seg Neutrophils % 78.3 % (40.0-70.0) H 06/15/21 17:10 Seg Neutrophils # 8.0 K/mm3 (1.8-7.7) H 06/15/21 17:10 PT 21.5 Sec. (12.2-14.9) H 06/19/21 05:07 INR 1.82 (0.87-1.13) H 06/19/21 05:07 Sodium 137 mmol/L (137-145) 06/15/21 17:10 Potassium 3.7 mmol/L (3.6-5.0) 06/15/21 17:10 Chloride 98.4 mmol/L (98-107) 06/15/21 17:10 Carbon Dioxide 20 mmol/L (22-30) L 06/15/21 17:10 Anion Gap 22 mmol/L 06/15/21 17:10 BUN 16 mg/dL (7-17) 06/15/21 17:10 Creatinine 0.9 mg/dL (0.6-1.2) 06/15/21 17:10 Estimated GFR > 60 ml/min 06/15/21 17:10 BUN/Creatinine Ratio 18 % 06/15/21 17:10 Glucose 138 mg/dL (65-100) H 06/15/21 17:10 POC Glucose 98 mg/dL (70-105) 06/14/21 07:24 Hemoglobin A1c 6.1 % (4-6) H 06/15/21 17:10 Calcium 9.7 mg/dL (8.4-10.2) 06/15/21 17:10 Total Bilirubin 1.00 mg/dL (0.1-1.2) 06/15/21 17:10 AST 28 units/L (5-40) 06/15/21 17:10 ALT 17 units/L (7-56) 06/15/21 17:10 Alkaline Phosphatase 149 units/L (35-129) H 06/15/21 17:10 Total Protein 8.8 g/dL (6.3-8.2) H 06/15/21 17:10 Albumin 4.2 g/dL (3.9-5) 06/15/21 17:10 Albumin/Globulin Ratio 0.9 % 06/15/21 17:10 Triglycerides 87 mg/dL (2-149) 06/15/21 17:10 Cholesterol 143 mg/dL (50-199) 06/15/21 17:10 LDL Cholesterol Direct 69 mg/dL (50-130) 06/15/21 17:10 HDL Cholesterol 58 mg/dL (40-59) 06/15/21 17:10 Cholesterol/HDL Ratio 2.46 % 06/15/21 17:10 TSH 1.570 mlU/mL (0.270-4.200) 06/15/21 17:10 Last Vital Signs Temp 99.1 F 06/19/21 19:40 Pulse 98 H 06/19/21 21:00 Resp 16 06/19/21 19:40 BP 112/62 06/19/21 21:00 Pulse Ox 90 06/19/21 19:40
[2021-06-20] MEDS: PANTOPRAZOLE 20 MG TAB PO SCH (09:54)
[2021-06-20] MEDS: carvediloL 25 MG TAB PO SCH ×2 (09:55→22:09)
[2021-06-20] MEDS: DULoxetine 30 MG CAP PO SCH (09:55)
[2021-06-20] MEDS: CETIRIZINE 10 MG TAB PO SCH (09:55)
[2021-06-20] MEDS: BENZTROPINE 0.5 MG TAB PO SCH (09:55)
[2021-06-20] MEDS: POTASSIUM CHLORIDE ER 10 MEQ TAB PO SCH (09:55)
[2021-06-20] MEDS: CYANOCOBALAMIN (VIT B-12) 1000 MCG TAB PO SCH (09:55)
[2021-06-20] MEDS: MAGNESIUM OXIDE 400 MG TAB PO SCH (09:55)
[2021-06-20] MEDS: TORSEMIDE 10 MG TAB PO SCH (09:55)
[2021-06-20] MEDS: CHOLECALCIFEROL (VIT D3) 1000 UNIT (25 mcg) TAB PO SCH (09:55)
[2021-06-20] MEDS: FLUTICASONE PROPIONATE NASAL SPRAY 16 GM NS SCH ×2 (10:29→22:09)
[2021-06-20] MEDS: TIOTROPIUM 18 MCG CAP INHALATION IH SCH (13:40)
[2021-06-20 15:28] LABS: INR 1.8 (0.87-1.13)
[2021-06-20] MEDS: WARFARIN 5 MG TAB PO SCH (17:57)
[2021-06-20] MEDS: oxyCODONE /ACETAMINOPHEN 5-325MG TAB PO PRN (18:00)
[2021-06-20] MEDS: hydrOXYzine PAMOATE 25 MG CAP PO PRN (22:10)
[2021-06-21] MEDS: LEVOTHYROXINE 88 MCG TAB PO SCH (05:53)
[2021-06-21] MEDS: TORSEMIDE 10 MG TAB PO SCH (08:03)
[2021-06-21] MEDS: FLUTICASONE PROPIONATE NASAL SPRAY 16 GM NS SCH ×2 (09:25→21:24)
[2021-06-21] MEDS: BENZTROPINE 0.5 MG TAB PO SCH (09:26)
[2021-06-21] MEDS: carvediloL 25 MG TAB PO SCH ×2 (09:29→21:24)
[2021-06-21] MEDS: CETIRIZINE 10 MG TAB PO SCH (09:29)
[2021-06-21] MEDS: POTASSIUM CHLORIDE ER 10 MEQ TAB PO SCH (09:31)
[2021-06-21] MEDS: DULoxetine 30 MG CAP PO SCH (09:31)
[2021-06-21] MEDS: MAGNESIUM OXIDE 400 MG TAB PO SCH (09:32)
[2021-06-21] MEDS: CYANOCOBALAMIN (VIT B-12) 1000 MCG TAB PO SCH (09:33)
[2021-06-21] MEDS: PANTOPRAZOLE 20 MG TAB PO SCH (09:33)
[2021-06-21] MEDS: CHOLECALCIFEROL (VIT D3) 1000 UNIT (25 mcg) TAB PO SCH (09:35)
--- NOTE | 2021-06-21 10:34 | Progress Note ---
Subjective Date of service: 06/21/21 Principal diagnosis: Schizophrenia Subjective Comment: The patient was seen today. She denies SI/HI, but states she feels sad and a little depressed. She says she didn't sleep well and feels tired. She denies hallucinations. She says "I heard voices when I came in but not now." REVIEW OF SYSTEMS Constitutional: Negative for weight loss ENT: Negative for stridor Respiratory: Negative for cough or hemoptysis All other systems reviewed and are negative MENTAL STATUS EXAMINATION General Appearance and Behavior: Age appropriate, good hygiene, wearing appropriate clothes, fair eye contact Cooperation: Participating/engaged, but Guarded Psychomotor Behavior: Psychomotor normal Mood: depressed, sad Affect and affective range: congruent with stated mood Thought Process: Goal directed Thought Content: sadness Speech: normal tone and pace Suicidal Ideation: Denies Homicidal Ideation: Denies Hallucinations: Denies Impulse Control: Questionable Insight and Judgment: Limited insight and fair judgment Memory: limited Attention: Normal Orientation: Alert and oriented Assessment and Plan (1) Schizophrenia Current Visit: Yes Status: Acute Treatment Plan Patient admitted for inpatient psychiatric evaluation, medication adjustment and close monitoring The patient's behavior, mood, sleep and appetite will be closely monitored. Patient enrolled in individual and group therapeutic sessions and encouraged to attend. Patient provided with a safe and structured environment. Patient's physical health needs will be addressed by the Hospitalist. Hospitalist Consulted Labs including CBC, CMP, Lipid profile and Hemoglobin A1C levels ordered for baseline reference Social Assessment will be completed and the Net Developer With [facility] will work with patient and family to ensure a suitable and safe disposition Medication adjustment will be made as clinically indicated No changes made today Usual Wellness Gnosticist/Preservation: - Start Trazodone 50 mg po QHS & 50 mg po QHS PRN between 10 PM & 2 AM for insomnia - Start Melatonin 5 mg po QHS to promote circadian rhythm The patient agreed on the treatment plan, understood the risk, benefit, alternative treatment, potential consequence of no treatment, and gave informed consent. Estimated days: 4 Post hospital care: primary care provider, psychiatric provider Case staffed with Dr. Mullins Medications and Allergies Allergies Allergy/AdvReac Type Severity Reaction Status Date / Time amlodipine Allergy Unknown Verified 06/14/21 16:46 apixaban Allergy Rash Verified 06/14/21 16:46 atenolol Allergy Rash Verified 06/14/21 16:46 cefdinir Allergy Unknown Verified 06/14/21 16:46 celecoxib Allergy Rash Verified 06/14/21 16:46 cephalexin Allergy Rash Verified 06/14/21 16:46 digoxin Allergy Rash Verified 06/14/21 16:46 doxycycline Allergy Rash Verified 06/14/21 16:46 isosorbide Allergy Rash Verified 06/14/21 16:46 Latex, Natural Rubber Allergy Rash Verified 06/14/21 16:46 [place] Allergy Unknown Verified 06/14/21 16:46 lisinopril Allergy Unknown Verified 06/14/21 16:46 methylprednisolone Allergy Unknown Verified 06/14/21 16:46 Penicillins Allergy Rash Verified 06/14/21 16:46 pregabalin Allergy Unknown Verified 06/14/21 16:46 propranolol Allergy Unknown Verified 06/14/21 16:46 rivaroxaban Allergy Unknown Verified 06/14/21 16:46 Sulfa (Sulfonamide Allergy Unknown Verified 06/14/21 16:46 Antibiotics) sulfamethoxazole Allergy Unknown Verified 06/14/21 16:46 [From Sulfamethoxazole-Trimethoprim] trimethoprim Allergy Unknown Verified 06/14/21 16:46 [From Sulfamethoxazole-Trimethoprim] Home Medications Medication Instructions Recorded Confirmed Last Taken Type ALPRAZolam [Xanax TAB] 0.25 mg PO 4XD PRN 06/13/21 06/13/21 Unknown History Albuterol Sulfate [Proair 90 mcg IH Q4HR PRN 06/13/21 06/13/21 Unknown History Respiclick] AtorvaSTATin [Lipitor] 20 mg PO BID 06/13/21 06/14/21 Unknown History Biotin [Biotin 1] 2,500 mcg PO DAILY 06/14/21 06/14/21 Unknown History Cholecalciferol (Vitamin D3) 2,000 unit PO QDAY 06/14/21 06/14/21 Unknown History [Vitamin D3 2,000 UNIT CAP] Cyanocobalamin (Vitamin B-12) 500 mcg PO DAILY 06/14/21 06/14/21 Unknown History [Vitamin B-12] Cyclobenzaprine [Flexeril] 10 mg PO BID PRN 06/14/21 06/14/21 Unknown History Duloxetine HCl 60 mg PO DAILY 06/14/21 06/14/21 Unknown History Fluticasone [Flonase] 1 spray NS BID 06/14/21 06/14/21 Unknown History Levothyroxine [Synthroid] 88 mcg PO QAM 06/14/21 06/14/21 Unknown History Loratadine [Allergy Relief] 10 mg PO DAILY 06/14/21 06/14/21 Unknown History Magnesium Oxide [Mag-Ox] 400 mg PO QDAY 06/14/21 06/14/21 Unknown History OLANZapine [Zyprexa] 15 mg PO HS 06/14/21 06/14/21 Unknown History OLANzapine [ZyPREXA] 2.5 mg PO HS 06/14/21 06/14/21 Unknown History Omeprazole 20 mg PO DAILY 06/14/21 06/14/21 Unknown History Potassium Chloride [K-Dur] 20 meq PO QDAY 06/14/21 06/14/21 Unknown History Sodium Chloride 0.65% Nasal [Deep 2 spray NS 4XD PRN 06/14/21 06/14/21 Unknown History Sea] Tiotropium [place] [Spiriva 2.5 mcg IH DAILY 06/14/21 06/14/21 Unknown History Respimat] Torsemide [Demadex] 20 mg PO HS 06/14/21 06/14/21 Unknown History Warfarin [Coumadin] 2.5 mg PO 5XW 06/14/21 06/14/21 Unknown History Warfarin [Coumadin] 5 mg PO 2XW 06/14/21 06/14/21 Unknown History carvediloL [Coreg] 25 mg PO BID 06/14/21 06/14/21 Unknown History hydrOXYzine PAMOATE [Vistaril] 25 mg PO Q4HR PRN 06/14/21 06/14/21 Unknown History oxyCODONE /ACETAMINOPHEN [Percocet 1 tab PO TID PRN 06/14/21 06/14/21 Unknown History 5/325] Active Meds: Active Medications Albuterol (Albuterol 2.5 Mg/3 Ml Nebu) 2.5 mg IH Q4HRT PRN PRN Reason: Shortness Of Breath Alprazolam (Alprazolam 0.25 Mg Tab) 0.25 mg PO Q6H PRN PRN Reason: anxiety Atorvastatin Calcium (Atorvastatin 20 Mg Tab) 20 mg PO BID [facility] Last Admin: 06/21/21 09:32 Dose: 20 mg Documented by: Benztropine Mesylate (Benztropine 0.5 Mg Tab) 0.5 mg PO DAILY [facility] Last Admin: 06/21/21 09:26 Dose: 0.5 mg Documented by: Carvedilol (Carvedilol 25 Mg Tab) 25 mg PO BID [facility] Last Admin: 06/21/21 09:29 Dose: 25 mg Documented by: Cetirizine HCl (Cetirizine 10 Mg Tab) 10 mg PO DAILY [facility] Last Admin: 06/21/21 09:29 Dose: 10 mg Documented by: Cholecalciferol (Cholecalciferol (Vit D3) 1000 Unit (25 Mcg) Tab) 2,000 unit PO DAILY [facility] Last Admin: 06/21/21 09:35 Dose: 2,000 unit Documented by: Cyanocobalamin (Cyanocobalamin (Vit B-12) 1000 Mcg Tab) 500 mcg PO DAILY [facility] Last Admin: 06/21/21 09:33 Dose: 500 mcg Documented by: Cyclobenzaprine HCl (Cyclobenzaprine 10 Mg Tab) 10 mg PO BID PRN PRN Reason: Muscle Spasm Duloxetine HCl (Duloxetine 30 Mg Cap) 60 mg PO DAILY [facility] Last Admin: 06/21/21 09:31 Dose: 60 mg Documented by: Fluticasone Propionate (Fluticasone Propionate Nasal [place] 16 Gm) 50 mcg NS BID [facility] Last Admin: 06/21/21 09:25 Dose: 50 mcg Documented by: Hydroxyzine Pamoate (Hydroxyzine Pamoate 25 Mg Cap) 25 mg PO Q4HR PRN PRN Reason: anxiety Last Admin: 06/20/21 22:10 Dose: 25 mg Documented by: Levothyroxine Sodium (Levothyroxine 88 Mcg Tab) 88 mcg PO QAM@0600 [facility] Last Admin: 06/21/21 05:53 Dose: 88 mcg Documented by: Magnesium Oxide (Magnesium Oxide 400 Mg Tab) 400 mg PO QDAY [facility] Last Admin: 06/21/21 09:32 Dose: 400 mg Documented by: Olanzapine (Olanzapine 5 Mg Tab) 15 mg PO QHS [facility] Last Admin: 06/20/21 22:08 Dose: 15 mg Documented by: Oxycodone/Acetaminophen (Oxycodone /Acetaminophen 5-325mg Tab) 1 tab PO TID PRN PRN Reason: PAIN Last Admin: 06/20/21 18:00 Dose: 1 tab Documented by: Pantoprazole Sodium (Pantoprazole 20 Mg Tab) 20 mg PO DAILY [facility] Last Admin: 06/21/21 09:33 Dose: 20 mg Documented by: Potassium Chloride (Potassium Chloride Er 10 Meq Tab) 20 meq PO QDAY [facility] Last Admin: 06/21/21 09:31 Dose: 20 meq Documented by: Sodium Chloride (Sodium Chloride Nasal [place] 44ml) 2 spray NS 4XD PRN PRN Reason: congestion Tiotropium [place] (Tiotropium 18 Mcg Cap Inhalation) 1 puff IH Q24HRT [facility] Last Admin: 06/20/21 13:40 Dose: 1 puff Documented by: Torsemide (Torsemide 10 Mg Tab) 20 mg PO 0800 [facility] Last Admin: 06/21/21 08:03 Dose: 20 mg Documented by: Warfarin Sodium (Warfarin 2.5 Mg Tab) 2.5 mg PO [id number] [facility]; Protocol Last Admin: 06/19/21 18:15 Dose: 2.5 mg Documented by: Warfarin Sodium (Warfarin 5 Mg Tab) 5 mg PO MoTh [facility]; Protocol Last Admin: 06/20/21 17:57 Dose: 5 mg Documented by: Results - Results Labs/Vitals: Laboratory Last Values WBC 10.3 K/mm3 (4.5-11.0) 06/15/21 17:10 RBC 5.28 M/mm3 (3.65-5.03) H 06/15/21 17:10 Hgb 13.9 gm/dl (10.1-14.3) 06/15/21 17:10 Hct 40.7 % (30.3-42.9) 06/15/21 17:10 MCV 77 fl (79-97) L 06/15/21 17:10 MCH 26 pg (28-32) L 06/15/21 17:10 MCHC 34 % (30-34) 06/15/21 17:10 RDW 15.9 % (13.2-15.2) H 06/15/21 17:10 Plt Count 327 K/mm3 (140-440) 06/15/21 17:10 Lymph % (Auto) 11.5 % (13.4-35.0) L 06/15/21 17:10 [place] % (Auto) 9.8 % (0.0-7.3) H 06/15/21 17:10 Eos % (Auto) 0.1 % (0.0-4.3) 06/15/21 17:10 Baso % (Auto) 0.3 % (0.0-1.8) 06/15/21 17:10 Lymph # (Auto) 1.2 K/mm3 (1.2-5.4) 06/15/21 17:10 [place] # (Auto) 1.0 K/mm3 (0.0-0.8) H 06/15/21 17:10 Eos # (Auto) 0.0 K/mm3 (0.0-0.4) 06/15/21 17:10 Baso # (Auto) 0.0 K/mm3 (0.0-0.1) 06/15/21 17:10 Seg Neutrophils % 78.3 % (40.0-70.0) H 06/15/21 17:10 Seg Neutrophils # 8.0 K/mm3 (1.8-7.7) H 06/15/21 17:10 PT 21.3 Sec. (12.2-14.9) H 06/20/21 14:03 INR 1.80 (0.87-1.13) H 06/20/21 14:03 Sodium 137 mmol/L (137-145) 06/15/21 17:10 Potassium 3.7 mmol/L (3.6-5.0) 06/15/21 17:10 Chloride 98.4 mmol/L (98-107) 06/15/21 17:10 Carbon Dioxide 20 mmol/L (22-30) L 06/15/21 17:10 Anion Gap 22 mmol/L 06/15/21 17:10 BUN 16 mg/dL (7-17) 06/15/21 17:10 Creatinine 0.9 mg/dL (0.6-1.2) 06/15/21 17:10 Estimated GFR > 60 ml/min 06/15/21 17:10 BUN/Creatinine Ratio 18 % 06/15/21 17:10 Glucose 138 mg/dL (65-100) H 06/15/21 17:10 POC Glucose 98 mg/dL (70-105) 06/14/21 07:24 Hemoglobin A1c 6.1 % (4-6) H 06/15/21 17:10 Calcium 9.7 mg/dL (8.4-10.2) 06/15/21 17:10 Total Bilirubin 1.00 mg/dL (0.1-1.2) 06/15/21 17:10 AST 28 units/L (5-40) 06/15/21 17:10 ALT 17 units/L (7-56) 06/15/21 17:10 Alkaline Phosphatase 149 units/L (35-129) H 06/15/21 17:10 Total Protein 8.8 g/dL (6.3-8.2) H 06/15/21 17:10 Albumin 4.2 g/dL (3.9-5) 06/15/21 17:10 Albumin/Globulin Ratio 0.9 % 06/15/21 17:10 Triglycerides 87 mg/dL (2-149) 06/15/21 17:10 Cholesterol 143 mg/dL (50-199) 06/15/21 17:10 LDL Cholesterol Direct 69 mg/dL (50-130) 06/15/21 17:10 HDL Cholesterol 58 mg/dL (40-59) 06/15/21 17:10 Cholesterol/HDL Ratio 2.46 % 06/15/21 17:10 TSH 1.570 mlU/mL (0.270-4.200) 06/15/21 17:10 Last Vital Signs Temp 97.7 F 06/21/21 08:07 Pulse 109 H 06/21/21 09:29 Resp 18 06/21/21 08:07 BP 142/92 06/21/21 09:29 Pulse Ox 95 06/21/21 08:07
[2021-06-21 10:55] LABS: INR 1.84 (0.87-1.13)
[2021-06-21] MEDS: WARFARIN 2 MG TAB PO SCH (17:50)
[2021-06-21] MEDS: oxyCODONE /ACETAMINOPHEN 5-325MG TAB PO PRN (17:54)
[2021-06-22] MEDS: LEVOTHYROXINE 88 MCG TAB PO SCH (06:18)
--- NOTE | 2021-06-22 10:07 | Progress Note ---
Subjective Date of service: 06/22/21 Principal diagnosis: Schizophrenia Subjective Comment: The patient was seen today. The patient says she is ready to go home. She denies SI/HI or hallucinations of any kind. She is complaining of butt and leg pain and is asking to lay down. I have the tech to assist the patient to go lay down for awhile. The patient is potential placement issue per . REVIEW OF SYSTEMS Constitutional: Negative for weight loss ENT: Negative for stridor Respiratory: Negative for cough or hemoptysis All other systems reviewed and are negative MENTAL STATUS EXAMINATION General Appearance and Behavior: Age appropriate, good hygiene, wearing appropriate clothes, fair eye contact Cooperation: Participating/engaged, but Guarded Psychomotor Behavior: Psychomotor normal Mood: depressed, sad Affect and affective range: congruent with stated mood Thought Process: Goal directed Thought Content: sadness Speech: normal tone and pace Suicidal Ideation: Denies Homicidal Ideation: Denies Hallucinations: Denies Impulse Control: Questionable Insight and Judgment: Limited insight and fair judgment Memory: limited Attention: Normal Orientation: Alert and oriented Assessment and Plan (1) Schizophrenia Current Visit: Yes Status: Acute Treatment Plan Patient admitted for inpatient psychiatric evaluation, medication adjustment and close monitoring The patient's behavior, mood, sleep and appetite will be closely monitored. Patient enrolled in individual and group therapeutic sessions and encouraged to attend. Patient provided with a safe and structured environment. Patient's physical health needs will be addressed by the Hospitalist. Hospitalist Consulted Labs including CBC, CMP, Lipid profile and Hemoglobin A1C levels ordered for baseline reference Social Assessment will be completed and the Stacker will work with patient and family to ensure a suitable and safe disposition Medication adjustment will be made as clinically indicated No changes made today Usual Wellness Mosque/Preservation: - Start Trazodone 50 mg po QHS & 50 mg po QHS PRN between 10 PM & 2 AM for insomnia - Start Melatonin 5 mg po QHS to promote circadian rhythm The patient agreed on the treatment plan, understood the risk, benefit, alternative treatment, potential consequence of no treatment, and gave informed consent. Estimated days: 4 Post hospital care: primary care provider, psychiatric provider Case staffed with Dr. Mullins Medications and Allergies Allergies Allergy/AdvReac Type Severity Reaction Status Date / Time amlodipine Allergy Unknown Verified 06/14/21 16:46 apixaban Allergy Rash Verified 06/14/21 16:46 atenolol Allergy Rash Verified 06/14/21 16:46 cefdinir Allergy Unknown Verified 06/14/21 16:46 celecoxib Allergy Rash Verified 06/14/21 16:46 cephalexin Allergy Rash Verified 06/14/21 16:46 digoxin Allergy Rash Verified 06/14/21 16:46 doxycycline Allergy Rash Verified 06/14/21 16:46 isosorbide Allergy Rash Verified 06/14/21 16:46 Latex, Natural Rubber Allergy Rash Verified 06/14/21 16:46 [place] Allergy Unknown Verified 06/14/21 16:46 lisinopril Allergy Unknown Verified 06/14/21 16:46 methylprednisolone Allergy Unknown Verified 06/14/21 16:46 Penicillins Allergy Rash Verified 06/14/21 16:46 pregabalin Allergy Unknown Verified 06/14/21 16:46 propranolol Allergy Unknown Verified 06/14/21 16:46 rivaroxaban Allergy Unknown Verified 06/14/21 16:46 Sulfa (Sulfonamide Allergy Unknown Verified 06/14/21 16:46 Antibiotics) sulfamethoxazole Allergy Unknown Verified 06/14/21 16:46 [From Sulfamethoxazole-Trimethoprim] trimethoprim Allergy Unknown Verified 06/14/21 16:46 [From Sulfamethoxazole-Trimethoprim] Home Medications Medication Instructions Recorded Confirmed Last Taken Type ALPRAZolam [Xanax TAB] 0.25 mg PO 4XD PRN 06/13/21 06/13/21 Unknown History Albuterol Sulfate [Proair 90 mcg IH Q4HR PRN 06/13/21 06/13/21 Unknown History Respiclick] AtorvaSTATin [Lipitor] 20 mg PO BID 06/13/21 06/14/21 Unknown History Biotin [Biotin 1] 2,500 mcg PO DAILY 06/14/21 06/14/21 Unknown History Cholecalciferol (Vitamin D3) 2,000 unit PO QDAY 06/14/21 06/14/21 Unknown History [Vitamin D3 2,000 UNIT CAP] Cyanocobalamin (Vitamin B-12) 500 mcg PO DAILY 06/14/21 06/14/21 Unknown History [Vitamin B-12] Cyclobenzaprine [Flexeril] 10 mg PO BID PRN 06/14/21 06/14/21 Unknown History Duloxetine HCl 60 mg PO DAILY 06/14/21 06/14/21 Unknown History Fluticasone [Flonase] 1 spray NS BID 06/14/21 06/14/21 Unknown History Levothyroxine [Synthroid] 88 mcg PO QAM 06/14/21 06/14/21 Unknown History Loratadine [Allergy Relief] 10 mg PO DAILY 06/14/21 06/14/21 Unknown History Magnesium Oxide [Mag-Ox] 400 mg PO QDAY 06/14/21 06/14/21 Unknown History OLANZapine [Zyprexa] 15 mg PO HS 06/14/21 06/14/21 Unknown History OLANzapine [ZyPREXA] 2.5 mg PO HS 06/14/21 06/14/21 Unknown History Omeprazole 20 mg PO DAILY 06/14/21 06/14/21 Unknown History Potassium Chloride [K-Dur] 20 meq PO QDAY 06/14/21 06/14/21 Unknown History Sodium Chloride 0.65% Nasal [Deep 2 spray NS 4XD PRN 06/14/21 06/14/21 Unknown History Sea] Tiotropium [place] [Spiriva 2.5 mcg IH DAILY 06/14/21 06/14/21 Unknown History Respimat] Torsemide [Demadex] 20 mg PO HS 06/14/21 06/14/21 Unknown History Warfarin [Coumadin] 2.5 mg PO 5XW 06/14/21 06/14/21 Unknown History Warfarin [Coumadin] 5 mg PO 2XW 06/14/21 06/14/21 Unknown History carvediloL [Coreg] 25 mg PO BID 06/14/21 06/14/21 Unknown History hydrOXYzine PAMOATE [Vistaril] 25 mg PO Q4HR PRN 06/14/21 06/14/21 Unknown History oxyCODONE /ACETAMINOPHEN [Percocet 1 tab PO TID PRN 06/14/21 06/14/21 Unknown History 5/325] Active Meds: Active Medications Albuterol (Albuterol 2.5 Mg/3 Ml Nebu) 2.5 mg IH Q4HRT PRN PRN Reason: Shortness Of Breath Alprazolam (Alprazolam 0.25 Mg Tab) 0.25 mg PO Q6H PRN PRN Reason: anxiety Atorvastatin Calcium (Atorvastatin 20 Mg Tab) 20 mg PO BID [facility] Last Admin: 06/21/21 21:24 Dose: 20 mg Documented by: Benztropine Mesylate (Benztropine 0.5 Mg Tab) 0.5 mg PO DAILY [facility] Last Admin: 06/21/21 09:26 Dose: 0.5 mg Documented by: Carvedilol (Carvedilol 25 Mg Tab) 25 mg PO BID [facility] Last Admin: 06/21/21 21:24 Dose: 25 mg Documented by: Cetirizine HCl (Cetirizine 10 Mg Tab) 10 mg PO DAILY [facility] Last Admin: 06/21/21 09:29 Dose: 10 mg Documented by: Cholecalciferol (Cholecalciferol (Vit D3) 1000 Unit (25 Mcg) Tab) 2,000 unit PO DAILY [facility] Last Admin: 06/21/21 09:35 Dose: 2,000 unit Documented by: Cyanocobalamin (Cyanocobalamin (Vit B-12) 1000 Mcg Tab) 500 mcg PO DAILY [facility] Last Admin: 06/21/21 09:33 Dose: 500 mcg Documented by: Cyclobenzaprine HCl (Cyclobenzaprine 10 Mg Tab) 10 mg PO BID PRN PRN Reason: Muscle Spasm Duloxetine HCl (Duloxetine 30 Mg Cap) 60 mg PO DAILY [facility] Last Admin: 06/21/21 09:31 Dose: 60 mg Documented by: Fluticasone Propionate (Fluticasone Propionate Nasal [place] 16 Gm) 50 mcg NS BID [facility] Last Admin: 06/21/21 21:24 Dose: 50 mcg Documented by: Hydroxyzine Pamoate (Hydroxyzine Pamo[place] 25 Mg Cap) 25 mg PO Q4HR PRN PRN Reason: anxiety Last Admin: 06/20/21 22:10 Dose: 25 mg Documented by: Levothyroxine Sodium (Levothyroxine 88 Mcg Tab) 88 mcg PO QAM@0600 [facility] Last Admin: 06/22/21 06:18 Dose: 88 mcg Documented by: Magnesium Oxide (Magnesium Oxide 400 Mg Tab) 400 mg PO QDAY [facility] Last Admin: 06/21/21 09:32 Dose: 400 mg Documented by: Olanzapine (Olanzapine 5 Mg Tab) 15 mg PO QHS [facility] Last Admin: 06/21/21 21:22 Dose: 15 mg Documented by: Oxycodone/Acetaminophen (Oxycodone /Acetaminophen 5-325mg Tab) 1 tab PO TID PRN PRN Reason: PAIN Last Admin: 06/21/21 17:54 Dose: 1 tab Documented by: Pantoprazole Sodium (Pantoprazole 20 Mg Tab) 20 mg PO DAILY [facility] Last Admin: 06/21/21 09:33 Dose: 20 mg Documented by: Potassium Chloride (Potassium Chloride Er 10 Meq Tab) 20 meq PO QDAY [facility] Last Admin: 06/21/21 09:31 Dose: 20 meq Documented by: Sodium Chloride (Sodium Chloride Nasal [place] 44ml) 2 spray NS 4XD PRN PRN Reason: congestion Tiotropium [place] (Tiotropium 18 Mcg Cap Inhalation) 1 puff IH Q24HRT [facility] Last Admin: 06/20/21 13:40 Dose: 1 puff Documented by: Torsemide (Torsemide 10 Mg Tab) 20 mg PO 0800 [facility] Last Admin: 06/21/21 08:03 Dose: 20 mg Documented by: Warfarin Sodium (Warfarin 2 Mg Tab) 4 mg PO DAILY@1700 [facility] Last Admin: 06/21/21 17:50 Dose: 4 mg Documented by: Results - Results Labs/Vitals: Laboratory Last Values WBC 10.3 K/mm3 (4.5-11.0) 06/15/21 17:10 RBC 5.28 M/mm3 (3.65-5.03) H 06/15/21 17:10 Hgb 13.9 gm/dl (10.1-14.3) 06/15/21 17:10 Hct 40.7 % (30.3-42.9) 06/15/21 17:10 MCV 77 fl (79-97) L 06/15/21 17:10 MCH 26 pg (28-32) L 06/15/21 17:10 MCHC 34 % (30-34) 06/15/21 17:10 RDW 15.9 % (13.2-15.2) H 06/15/21 17:10 Plt Count 327 K/mm3 (140-440) 06/15/21 17:10 Lymph % (Auto) 11.5 % (13.4-35.0) L 06/15/21 17:10 [place] % (Auto) 9.8 % (0.0-7.3) H 06/15/21 17:10 Eos % (Auto) 0.1 % (0.0-4.3) 06/15/21 17:10 Baso % (Auto) 0.3 % (0.0-1.8) 06/15/21 17:10 Lymph # (Auto) 1.2 K/mm3 (1.2-5.4) 06/15/21 17:10 [place] # (Auto) 1.0 K/mm3 (0.0-0.8) H 06/15/21 17:10 Eos # (Auto) 0.0 K/mm3 (0.0-0.4) 06/15/21 17:10 Baso # (Auto) 0.0 K/mm3 (0.0-0.1) 06/15/21 17:10 Seg Neutrophils % 78.3 % (40.0-70.0) H 06/15/21 17:10 Seg Neutrophils # 8.0 K/mm3 (1.8-7.7) H 06/15/21 17:10 PT 21.7 Sec. (12.2-14.9) H 06/21/21 10:08 INR 1.84 (0.87-1.13) H 06/21/21 10:08 Sodium 137 mmol/L (137-145) 06/15/21 17:10 Potassium 3.7 mmol/L (3.6-5.0) 06/15/21 17:10 Chloride 98.4 mmol/L (98-107) 06/15/21 17:10 Carbon Dioxide 20 mmol/L (22-30) L 06/15/21 17:10 Anion Gap 22 mmol/L 06/15/21 17:10 BUN 16 mg/dL (7-17) 06/15/21 17:10 Creatinine 0.9 mg/dL (0.6-1.2) 06/15/21 17:10 Estimated GFR > 60 ml/min 06/15/21 17:10 BUN/Creatinine Ratio 18 % 06/15/21 17:10 Glucose 138 mg/dL (65-100) H 06/15/21 17:10 POC Glucose 98 mg/dL (70-105) 06/14/21 07:24 Hemoglobin A1c 6.1 % (4-6) H 06/15/21 17:10 Calcium 9.7 mg/dL (8.4-10.2) 06/15/21 17:10 Total Bilirubin 1.00 mg/dL (0.1-1.2) 06/15/21 17:10 AST 28 units/L (5-40) 06/15/21 17:10 ALT 17 units/L (7-56) 06/15/21 17:10 Alkaline Phosphatase 149 units/L (35-129) H 06/15/21 17:10 Total Protein 8.8 g/dL (6.3-8.2) H 06/15/21 17:10 Albumin 4.2 g/dL (3.9-5) 06/15/21 17:10 Albumin/Globulin Ratio 0.9 % 06/15/21 17:10 Triglycerides 87 mg/dL (2-149) 06/15/21 17:10 Cholesterol 143 mg/dL (50-199) 06/15/21 17:10 LDL Cholesterol Direct 69 mg/dL (50-130) 06/15/21 17:10 HDL Cholesterol 58 mg/dL (40-59) 06/15/21 17:10 Cholesterol/HDL Ratio 2.46 % 06/15/21 17:10 TSH 1.570 mlU/mL (0.270-4.200) 06/15/21 17:10 Last Vital Signs Temp 98.9 F 06/21/21 19:09 Pulse 72 06/21/21 21:24 Resp 18 06/21/21 19:09 BP 151/60 06/21/21 21:24 Pulse Ox 97 06/21/21 19:09
[2021-06-22] MEDS: CETIRIZINE 10 MG TAB PO SCH (10:58)
[2021-06-22] MEDS: BENZTROPINE 0.5 MG TAB PO SCH (10:59)
[2021-06-22] MEDS: PANTOPRAZOLE 20 MG TAB PO SCH (10:59)
[2021-06-22] MEDS: TORSEMIDE 10 MG TAB PO SCH (10:59)
[2021-06-22] MEDS: DULoxetine 30 MG CAP PO SCH (10:59)
[2021-06-22] MEDS: CYANOCOBALAMIN (VIT B-12) 1000 MCG TAB PO SCH (11:00)
[2021-06-22] MEDS: MAGNESIUM OXIDE 400 MG TAB PO SCH (11:00)
[2021-06-22] MEDS: POTASSIUM CHLORIDE ER 10 MEQ TAB PO SCH (11:00)
[2021-06-22] MEDS: TIOTROPIUM 18 MCG CAP INHALATION IH SCH (11:00)
[2021-06-22] MEDS: carvediloL 25 MG TAB PO SCH ×2 (11:00→21:44)
[2021-06-22] MEDS: FLUTICASONE PROPIONATE NASAL SPRAY 16 GM NS SCH ×2 (11:01→21:45)
[2021-06-22] MEDS: CHOLECALCIFEROL (VIT D3) 1000 UNIT (25 mcg) TAB PO SCH (11:01)
[2021-06-22 13:56] LABS: INR 2.03 (0.87-1.13)
[2021-06-22] MEDS: oxyCODONE /ACETAMINOPHEN 5-325MG TAB PO PRN (17:51)
[2021-06-22] MEDS: WARFARIN 2 MG TAB PO SCH (17:51)
[2021-06-23] MEDS: LEVOTHYROXINE 88 MCG TAB PO SCH (05:49)
[2021-06-23 09:35] LABS: INR 2.39 (0.87-1.13)
--- NOTE | 2021-06-23 10:14 | Progress Note ---
Subjective Date of service: 06/23/21 Principal diagnosis: Schizophrenia Subjective Comment: The patient was seen today. She says she didn't sleep well last night and is tired today. She denies SI/HI or hallucinations of any kind. The patient is awaiting placement. REVIEW OF SYSTEMS Constitutional: Negative for weight loss ENT: Negative for stridor Respiratory: Negative for cough or hemoptysis All other systems reviewed and are negative MENTAL STATUS EXAMINATION General Appearance and Behavior: Age appropriate, good hygiene, wearing appropriate clothes, fair eye contact Cooperation: Participating/engaged, but Guarded Psychomotor Behavior: Psychomotor normal Mood: okay, tired Affect and affective range: congruent with stated mood Thought Process: Goal directed Thought Content: None Speech: normal tone and pace Suicidal Ideation: Denies Homicidal Ideation: Denies Hallucinations: Denies Impulse Control: Limited Insight and Judgment: Limited insight and fair judgment Memory: limited Attention: Normal Orientation: Alert and oriented Assessment and Plan (1) Schizophrenia Current Visit: Yes Status: Acute Treatment Plan Patient admitted for inpatient psychiatric evaluation, medication adjustment and close monitoring The patient's behavior, mood, sleep and appetite will be closely monitored. Patient enrolled in individual and group therapeutic sessions and encouraged to attend. Patient provided with a safe and structured environment. Patient's physical health needs will be addressed by the Hospitalist. Hospita list Consulted Labs including CBC, CMP, Lipid profile and Hemoglobin A1C levels ordered for baseline reference Social Assessment will be completed and the Asic Verification Engineer will work with patient and family to ensure a suitable and safe disposition Medication adjustment will be made as clinically indicated Melatonin 5mg po qhs prn Usual Wellness Rastafarian/Preservation: - Start Trazodone 50 mg po QHS & 50 mg po QHS PRN between 10 PM & 2 AM for insomnia - Start Melatonin 5 mg po QHS to promote circadian rhythm The patient agreed on the treatment plan, understood the risk, benefit, alternative treatment, potential consequence of no treatment, and gave informed consent. Estimated days: 4 Post hospital care: primary care provider, psychiatric provider Case staffed with Dr. Mullins Medications and Allergies Allergies Allergy/AdvReac Type Severity Reaction Status Date / Time amlodipine Allergy Unknown Verified 06/14/21 16:46 apixaban Allergy Rash Verified 06/14/21 16:46 atenolol Allergy Rash Verified 06/14/21 16:46 cefdinir Allergy Unknown Verified 06/14/21 16:46 celecoxib Allergy Rash Verified 06/14/21 16:46 cephalexin Allergy Rash Verified 06/14/21 16:46 digoxin Allergy Rash Verified 06/14/21 16:46 doxycycline Allergy Rash Verified 06/14/21 16:46 isosorbide Allergy Rash Verified 06/14/21 16:46 Latex, Natural Rubber Allergy Rash Verified 06/14/21 16:46 [place] Allergy Unknown Verified 06/14/21 16:46 lisinopril Allergy Unknown Verified 06/14/21 16:46 methylprednisolone Allergy Unknown Verified 06/14/21 16:46 Penicillins Allergy Rash Verified 06/14/21 16:46 pregabalin Allergy Unknown Verified 06/14/21 16:46 propranolol Allergy Unknown Verified 06/14/21 16:46 rivaroxaban Allergy Unknown Verified 06/14/21 16:46 Sulfa (Sulfonamide Allergy Unknown Verified 06/14/21 16:46 Antibiotics) sulfamethoxazole Allergy Unknown Verified 06/14/21 16:46 [From Sulfamethoxazole-Trimethoprim] trimethoprim Allergy Unknown Verified 06/14/21 16:46 [From Sulfamethoxazole-Trimethoprim] Home Medications Medication Instructions Recorded Confirmed Last Taken Type ALPRAZolam [Xanax TAB] 0.25 mg PO 4XD PRN 06/13/21 06/13/21 Unknown History Albuterol Sulfate [Proair 90 mcg IH Q4HR PRN 06/13/21 06/13/21 Unknown History Respiclick] AtorvaSTATin [Lipitor] 20 mg PO BID 06/13/21 06/14/21 Unknown History Biotin [Biotin 1] 2,500 mcg PO DAILY 06/14/21 06/14/21 Unknown History Cholecalciferol (Vitamin D3) 2,000 unit PO QDAY 06/14/21 06/14/21 Unknown History [Vitamin D3 2,000 UNIT CAP] Cyanocobalamin (Vitamin B-12) 500 mcg PO DAILY 06/14/21 06/14/21 Unknown History [Vitamin B-12] Cyclobenzaprine [Flexeril] 10 mg PO BID PRN 06/14/21 06/14/21 Unknown History Duloxetine HCl 60 mg PO DAILY 06/14/21 06/14/21 Unknown History Fluticasone [Flonase] 1 spray NS BID 06/14/21 06/14/21 Unknown History Levothyroxine [Synthroid] 88 mcg PO QAM 06/14/21 06/14/21 Unknown History Loratadine [Allergy Relief] 10 mg PO DAILY 06/14/21 06/14/21 Unknown History Magnesium Oxide [Mag-Ox] 400 mg PO QDAY 06/14/21 06/14/21 Unknown History OLANZapine [Zyprexa] 15 mg PO HS 06/14/21 06/14/21 Unknown History OLANzapine [ZyPREXA] 2.5 mg PO HS 06/14/21 06/14/21 Unknown History Omeprazole 20 mg PO DAILY 06/14/21 06/14/21 Unknown History Potassium Chloride [K-Dur] 20 meq PO QDAY 06/14/21 06/14/21 Unknown History Sodium Chloride 0.65% Nasal [Deep 2 spray NS 4XD PRN 06/14/21 06/14/21 Unknown History Sea] Tiotropium [place] [Spiriva 2.5 mcg IH DAILY 06/14/21 06/14/21 Unknown History Respimat] Torsemide [Demadex] 20 mg PO HS 06/14/21 06/14/21 Unknown History Warfarin [Coumadin] 2.5 mg PO 5XW 06/14/21 06/14/21 Unknown History Warfarin [Coumadin] 5 mg PO 2XW 06/14/21 06/14/21 Unknown History carvediloL [Coreg] 25 mg PO BID 06/14/21 06/14/21 Unknown History hydrOXYzine PAMOATE [Vistaril] 25 mg PO Q4HR PRN 06/14/21 06/14/21 Unknown History oxyCODONE /ACETAMINOPHEN [Percocet 1 tab PO TID PRN 06/14/21 06/14/21 Unknown History 5/325] Active Meds: Active Medications Albuterol (Albuterol 2.5 Mg/3 Ml Nebu) 2.5 mg IH Q4HRT PRN PRN Reason: Shortness Of Breath Alprazolam (Alprazolam 0.25 Mg Tab) 0.25 mg PO Q6H PRN PRN Reason: anxiety Atorvastatin Calcium (Atorvastatin 20 Mg Tab) 20 mg PO BID ON LICENSE OF [facility] Last Admin: 06/22/21 21:44 Dose: 20 mg Documented by: Benztropine Mesylate (Benztropine 0.5 Mg Tab) 0.5 mg PO DAILY ON LICENSE OF [facility] Last Admin: 06/22/21 10:59 Dose: 0.5 mg Documented by: Carvedilol (Carvedilol 25 Mg Tab) 25 mg PO BID ON LICENSE OF [facility] Last Admin: 06/22/21 21:44 Dose: Not Given Documented by: Cetirizine HCl (Cetirizine 10 Mg Tab) 10 mg PO DAILY ON LICENSE OF [facility] Last Admin: 06/22/21 10:58 Dose: 10 mg Documented by: Cholecalciferol (Cholecalciferol (Vit D3) 1000 Unit (25 Mcg) Tab) 2,000 unit PO DAILY ON LICENSE OF [facility] Last Admin: 06/22/21 11:01 Dose: 2,000 unit Documented by: Cyanocobalamin (Cyanocobalamin (Vit B-12) 1000 Mcg Tab) 500 mcg PO DAILY ON LICENSE OF [facility] Last Admin: 06/22/21 11:00 Dose: 500 mcg Documented by: Cyclobenzaprine HCl (Cyclobenzaprine 10 Mg Tab) 10 mg PO BID PRN PRN Reason: Muscle Spasm Duloxetine HCl (Duloxetine 30 Mg Cap) 60 mg PO DAILY ON LICENSE OF [facility] Last Admin: 06/22/21 10:59 Dose: 60 mg Documented by: Fluticasone Propionate (Fluticasone Propionate Nasal [place] 16 Gm) 50 mcg NS BID ON LICENSE OF [facility] Last Admin: 06/22/21 21:45 Dose: 50 mcg Documented by: Hydroxyzine Pamoate (Hydroxyzine Pamoate 25 Mg Cap) 25 mg PO Q4HR PRN PRN Reason: anxiety Last Admin: 06/20/21 22:10 Dose: 25 mg Documented by: Levothyroxine Sodium (Levothyroxine 88 Mcg Tab) 88 mcg PO QAM@0600 ON LICENSE OF [facility] Last Admin: 06/23/21 05:49 Dose: 88 mcg Documented by: Magnesium Oxide (Magnesium Oxide 400 Mg Tab) 400 mg PO QDAY ON LICENSE OF [facility] Last Admin: 06/22/21 11:00 Dose: 400 mg Documented by: Olanzapine (Olanzapine 5 Mg Tab) 15 mg PO QHS ON LICENSE OF [facility] Last Admin: 06/22/21 21:43 Dose: 15 mg Documented by: Oxycodone/Acetaminophen (Oxycodone /Acetaminophen 5-325mg Tab) 1 tab PO TID PRN PRN Reason: PAIN Last Admin: 06/22/21 17:51 Dose: 1 tab Documented by: Pantoprazole Sodium (Pantoprazole 20 Mg Tab) 20 mg PO DAILY ON LICENSE OF [facility] Last Admin: 06/22/21 10:59 Dose: 20 mg Documented by: Potassium Chloride (Potassium Chloride Er 10 Meq Tab) 20 meq PO QDAY ON LICENSE OF [facility] Last Admin: 06/22/21 11:00 Dose: 20 meq Documented by: Sodium Chloride (Sodium Chloride Nasal [place] 44ml) 2 spray NS 4XD PRN PRN Reason: congestion Tiotropium [place] (Tiotropium 18 Mcg Cap Inhalation) 1 puff IH Q24HRT ON LICENSE OF [facility] Last Admin: 06/22/21 11:00 Dose: Not Given Documented by: Torsemide (Torsemide 10 Mg Tab) 20 mg PO 0800 ON LICENSE OF [facility] Last Admin: 06/22/21 10:59 Dose: 20 mg Documented by: Warfarin Sodium (Warfarin 2 Mg Tab) 4 mg PO DAILY@1700 ON LICENSE OF [facility] Last Admin: 06/22/21 17:51 Dose: 4 mg Documented by: Results - Results Labs/Vitals: Laboratory Last Values WBC 10.3 K/mm3 (4.5-11.0) 06/15/21 17:10 RBC 5.28 M/mm3 (3.65-5.03) H 06/15/21 17:10 Hgb 13.9 gm/dl (10.1-14.3) 06/15/21 17:10 Hct 40.7 % (30.3-42.9) 06/15/21 17:10 MCV 77 fl (79-97) L 06/15/21 17:10 MCH 26 pg (28-32) L 06/15/21 17:10 MCHC 34 % (30-34) 06/15/21 17:10 RDW 15.9 % (13.2-15.2) H 06/15/21 17:10 Plt Count 327 K/mm3 (140-440) 06/15/21 17:10 Lymph % (Auto) 11.5 % (13.4-35.0) L 06/15/21 17:10 [place] % (Auto) 9.8 % (0.0-7.3) H 06/15/21 17:10 Eos % (Auto) 0.1 % (0.0-4.3) 06/15/21 17:10 Baso % (Auto) 0.3 % (0.0-1.8) 06/15/21 17:10 Lymph # (Auto) 1.2 K/mm3 (1.2-5.4) 06/15/21 17:10 [place] # (Auto) 1.0 K/mm3 (0.0-0.8) H 06/15/21 17:10 Eos # (Auto) 0.0 K/mm3 (0.0-0.4) 06/15/21 17:10 Baso # (Auto) 0.0 K/mm3 (0.0-0.1) 06/15/21 17:10 Seg Neutrophils % 78.3 % (40.0-70.0) H 06/15/21 17:10 Seg Neutrophils # 8.0 K/mm3 (1.8-7.7) H 06/15/21 17:10 PT 26.4 Sec. (12.2-14.9) H 06/23/21 08:49 INR 2.39 (0.87-1.13) H 06/23/21 08:49 Sodium 137 mmol/L (137-145) 06/15/21 17:10 Potassium 3.7 mmol/L (3.6-5.0) 06/15/21 17:10 Chloride 98.4 mmol/L (98-107) 06/15/21 17:10 Carbon Dioxide 20 mmol/L (22-30) L 06/15/21 17:10 Anion Gap 22 mmol/L 06/15/21 17:10 BUN 16 mg/dL (7-17) 06/15/21 17:10 Creatinine 0.9 mg/dL (0.6-1.2) 06/15/21 17:10 Estimated GFR > 60 ml/min 06/15/21 17:10 BUN/Creatinine Ratio 18 % 06/15/21 17:10 Glucose 138 mg/dL (65-100) H 06/15/21 17:10 POC Glucose 98 mg/dL (70-105) 06/14/21 07:24 Hemoglobin A1c 6.1 % (4-6) H 06/15/21 17:10 Calcium 9.7 mg/dL (8.4-10.2) 06/15/21 17:10 Total Bilirubin 1.00 mg/dL (0.1-1.2) 06/15/21 17:10 AST 28 units/L (5-40) 06/15/21 17:10 ALT 17 units/L (7-56) 06/15/21 17:10 Alkaline Phosphatase 149 units/L (35-129) H 06/15/21 17:10 Total Protein 8.8 g/dL (6.3-8.2) H 06/15/21 17:10 Albumin 4.2 g/dL (3.9-5) 06/15/21 17:10 Albumin/Globulin Ratio 0.9 % 06/15/21 17:10 Triglycerides 87 mg/dL (2-149) 06/15/21 17:10 Cholesterol 143 mg/dL (50-199) 06/15/21 17:10 LDL Cholesterol Direct 69 mg/dL (50-130) 06/15/21 17:10 HDL Cholesterol 58 mg/dL (40-59) 06/15/21 17:10 Cholesterol/HDL Ratio 2.46 % 06/15/21 17:10 TSH 1.570 mlU/mL (0.270-4.200) 06/15/21 17:10 Last Vital Signs Temp 98.0 F 06/22/21 19:53 Pulse 78 06/22/21 21:44 Resp 18 06/22/21 19:53 BP 98/61 06/22/21 21:44 Pulse Ox 94 06/22/21 19:54
[2021-06-23] MEDS: POTASSIUM CHLORIDE ER 10 MEQ TAB PO SCH (10:44)
[2021-06-23] MEDS: TORSEMIDE 10 MG TAB PO SCH (10:45)
[2021-06-23] MEDS: DULoxetine 30 MG CAP PO SCH (10:45)
[2021-06-23] MEDS: carvediloL 25 MG TAB PO SCH ×2 (10:45→22:14)
[2021-06-23] MEDS: BENZTROPINE 0.5 MG TAB PO SCH (10:45)
[2021-06-23] MEDS: MAGNESIUM OXIDE 400 MG TAB PO SCH (10:45)
[2021-06-23] MEDS: PANTOPRAZOLE 20 MG TAB PO SCH (10:49)
[2021-06-23] MEDS: FLUTICASONE PROPIONATE NASAL SPRAY 16 GM NS SCH ×2 (10:49→22:18)
[2021-06-23] MEDS: CETIRIZINE 10 MG TAB PO SCH (10:49)
[2021-06-23] MEDS: CYANOCOBALAMIN (VIT B-12) 1000 MCG TAB PO SCH (10:50)
[2021-06-23] MEDS: CHOLECALCIFEROL (VIT D3) 1000 UNIT (25 mcg) TAB PO SCH (10:51)
[2021-06-23] MEDS: oxyCODONE /ACETAMINOPHEN 5-325MG TAB PO PRN ×2 (10:51→22:21)
[2021-06-23] MEDS: TIOTROPIUM 18 MCG CAP INHALATION IH SCH ×2 (13:46→13:51)
[2021-06-23] MEDS ORDERED: WARFARIN 2.5 MG TAB PO SCH (17:00)
[2021-06-23] MEDS ORDERED: MELATONIN 5 MG TAB PO PRN (22:00)
[2021-06-24] MEDS: LEVOTHYROXINE 88 MCG TAB PO SCH (07:38)
[2021-06-24 08:21] LABS: INR 2.72 (0.87-1.13)
--- NOTE | 2021-06-24 09:05 | Discharge Summary ---
Providers - Providers Date of Admission: 06/14/21 01:45 Date of discharge: 06/24/21 Attending physician: JOSE RAMON LAUREN MD 06/13/21 12:23 Consult to Physician [CONS] Routine Comment: Consulting Provider: MARIYA JONES Physician Instructions: Reason For Exam: manage medical conditions Primary care physician: CAPTAIN WAITER Hospitalization Reason for admission: depression Admitting Diagnosis: F20.9 - SCHIZOPHRENIA, UNSPECIFIED Condition: Stable Hospital course: The patient was provided inpatient psychiatric treatment with safe and supportive care, medication adjustment, adverse effect monitoring, medical evaluations, medical treatments, assessment and psycho-education. The patient's mood, cognition, behavior, moral support are improved and stabilized. St the time of discharge, the patient had no endangering behavior and no debilitating adverse effects. The patient agreed on potential consequences of no treatment and gave informed consent. 06/15/2021:The patient was seen in the activity room, she is calm but paranoid. The patient states her medications are poisoned " they are trying to kill me." She endorses visual hallucinations " sing flashing colors and lights." The patient reports having intermittent auditory hallucinations. Start patient on Haldol 5mg po BID, please give IM if patient refuse. 06/16/2021: The patient was seen eating breakfast. She states " I'm doing better, I slept better last night." She continue to be confused and paranoid. She reports having intermittent auditory hallucinations and denies suicidal/homicidal ideation. 06/17/2021: The patient was seen in her room, she reports feeling better but complained of generalized pain. The patient states sleep and appetite as good. She states she wants to see her son and her grand children. The patient denies having any current suicidal/homicidal ideation. The patient denies hallucinations. 06/18/2021: The patient was seen today and she reports doing well. The patient reports that she wants to be placed back on Zyprexa since it works for her and also was effective for her late brother that had schizophrenia. She reports sleep and appetite as good. She denies any current suicidal/homicidal ideation and denies hallucinations. 06/19/2021: The patient was seen this morning, she was tearful. She reports mood as " rebellious, I don't want to stay here, I want to go home. She complained of back and lower extremity pain. She denies any current suicidal ideation and denies hallucinations. 06/20/2021: The patient was seen this morning and she reports doing well. She states it was one year yesterday since her mother passed and she was happy to speak with her son. The patient states " I feel like I'm floating." She denies any current suicidal/homicidal ideation and denies hallucinations. 06/21 The patient was seen today. She denies SI/HI, but states she feels sad and a little depressed. She says she didn't sleep well and feels tired. She denies hallucinations. She says "I heard voices when I came in but not now." 06/22 The patient was seen today. The patient says she is ready to go home. She denies SI/HI or hallucinations of any kind. She is complaining of butt and leg pain and is asking to lay down. I have the tech to assist the patient to go lay down for awhile. The patient is potential placement issue per . 06/23 The patient was seen today. She says she didn't sleep well last night and is tired today. She denies SI/HI or hallucinations of any kind. The patient is awaiting placement. 06/24 The patient was seen today. She is smiling and pleasant. She says she feels pretty good overall, but states she's tired. She denies SI/HI or hallucinations of any kind. Disposition: 01 HOME / SELF CARE / HOMELESS Time spent for discharge: 35 Allergies/Adverse Reactions: Allergies amlodipine Allergy (Verified 06/14/21 16:46) Unknown apixaban Allergy (Verified 06/14/21 16:46) Rash atenolol Allergy (Verified 06/14/21 16:46) Rash cefdinir Allergy (Verified 06/14/21 16:46) Unknown celecoxib Allergy (Verified 06/14/21 16:46) Rash cephalexin Allergy (Verified 06/14/21 16:46) Rash digoxin Allergy (Verified 06/14/21 16:46) Rash doxycycline Allergy (Verified 06/14/21 16:46) Rash isosorbide Allergy (Verified 06/14/21 16:46) Rash Latex, Natural Rubber Allergy (Verified 06/14/21 16:46) Rash council Allergy (Verified 06/14/21 16:46) Unknown lisinopril Allergy (Verified 06/14/21 16:46) Unknown methylprednisolone Allergy (Verified 06/14/21 16:46) Unknown Penicillins Allergy (Verified 06/14/21 16:46) Rash pregabalin Allergy (Verified 06/14/21 16:46) Unknown propranolol Allergy (Verified 06/14/21 16:46) Unknown rivaroxaban Allergy (Verified 06/14/21 16:46) Unknown Sulfa (Sulfonamide Antibiotics) Allergy (Verified 06/14/21 16:46) Unknown sulfamethoxazole [From Sulfamethoxazole-Trimethoprim] Allergy (Verified 06/14/21 16:46) Unknown trimethoprim [From Sulfamethoxazole-Trimethoprim] Allergy (Verified 06/14/21 16:46) Unknown Vital Signs: Last Vital Signs Temp 98.8 F 06/23/21 07:13 Pulse 74 06/23/21 22:14 Resp 18 06/23/21 22:21 BP 105/62 06/23/21 22:14 Pulse Ox 95 06/23/21 07:13 Last Lab: Laboratory Last Values WBC 10.3 K/mm3 (4.5-11.0) 06/15/21 17:10 RBC 5.28 M/mm3 (3.65-5.03) H 06/15/21 17:10 Hgb 13.9 gm/dl (10.1-14.3) 06/15/21 17:10 Hct 40.7 % (30.3-42.9) 06/15/21 17:10 MCV 77 fl (79-97) L 06/15/21 17:10 MCH 26 pg (28-32) L 06/15/21 17:10 MCHC 34 % (30-34) 06/15/21 17:10 RDW 15.9 % (13.2-15.2) H 06/15/21 17:10 Plt Count 327 K/mm3 (140-440) 06/15/21 17:10 Lymph % (Auto) 11.5 % (13.4-35.0) L 06/15/21 17:10 [place] % (Auto) 9.8 % (0.0-7.3) H 06/15/21 17:10 Eos % (Auto) 0.1 % (0.0-4.3) 06/15/21 17:10 Baso % (Auto) 0.3 % (0.0-1.8) 06/15/21 17:10 Lymph # (Auto) 1.2 K/mm3 (1.2-5.4) 06/15/21 17:10 [place] # (Auto) 1.0 K/mm3 (0.0-0.8) H 06/15/21 17:10 Eos # (Auto) 0.0 K/mm3 (0.0-0.4) 06/15/21 17:10 Baso # (Auto) 0.0 K/mm3 (0.0-0.1) 06/15/21 17:10 Seg Neutrophils % 78.3 % (40.0-70.0) H 06/15/21 17:10 Seg Neutrophils # 8.0 K/mm3 (1.8-7.7) H 06/15/21 17:10 PT 29.1 Sec. (12.2-14.9) H 06/24/21 07:19 INR 2.72 (0.87-1.13) H 06/24/21 07:19 Sodium 137 mmol/L (137-145) 06/15/21 17:10 Potassium 3.7 mmol/L (3.6-5.0) 06/15/21 17:10 Chloride 98.4 mmol/L (98-107) 06/15/21 17:10 Carbon Dioxide 20 mmol/L (22-30) L 06/15/21 17:10 Anion Gap 22 mmol/L 06/15/21 17:10 BUN 16 mg/dL (7-17) 06/15/21 17:10 Creatinine 0.9 mg/dL (0.6-1.2) 06/15/21 17:10 Estimated GFR > 60 ml/min 06/15/21 17:10 BUN/Creatinine Ratio 18 % 06/15/21 17:10 Glucose 138 mg/dL (65-100) H 06/15/21 17:10 POC Glucose 98 mg/dL (70-105) 06/14/21 07:24 Hemoglobin A1c 6.1 % (4-6) H 06/15/21 17:10 Calcium 9.7 mg/dL (8.4-10.2) 06/15/21 17:10 Total Bilirubin 1.00 mg/dL (0.1-1.2) 06/15/21 17:10 AST 28 units/L (5-40) 06/15/21 17:10 ALT 17 units/L (7-56) 06/15/21 17:10 Alkaline Phosphatase 149 units/L (35-129) H 06/15/21 17:10 Total Protein 8.8 g/dL (6.3-8.2) H 06/15/21 17:10 Albumin 4.2 g/dL (3.9-5) 06/15/21 17:10 Albumin/Globulin Ratio 0.9 % 06/15/21 17:10 Triglycerides 87 mg/dL (2-149) 06/15/21 17:10 Cholesterol 143 mg/dL (50-199) 06/15/21 17:10 LDL Cholesterol Direct 69 mg/dL (50-130) 06/15/21 17:10 HDL Cholesterol 58 mg/dL (40-59) 06/15/21 17:10 Cholesterol/HDL Ratio 2.46 % 06/15/21 17:10 TSH 1.570 mlU/mL (0.270-4.200) 06/15/21 17:10 Core Measure Documentation - Palliative Care Palliative Care/ Comfort Measures: Not Applicable - Core Measures Any of the following diagnoses?: none Exam - Constitutional Vitals: Temp Pulse Resp BP Pulse Ox 98.8 F 74 18 105/62 95 06/23/21 07:13 06/23/21 22:14 06/23/21 22:21 06/23/21 22:14 06/23/21 07:13 General appearance: Present: no acute distress - EENT Eyes: Present: PERRL, EOM intact ENT: hearing intact, clear oral mucosa - Neck Neck: Present: supple, normal ROM - Respiratory Respiratory effort: normal Plan Activity: advance as tolerated Weight Bearing Status: Weight Bear as Tolerated Care Plan Goals: Maintain good and stable mental health Assessment: Schizophrenia Follow up with: PRIMARY CARE, [Primary Care Provider] - 7 Days Forms: Warfarin Discharge Instruction Prescriptions: Melatonin [Melatonin 5MG TAB] 5 mg PO QHS PRN #30 tablet PRN Reason: Sleep OLANzapine [ZyPREXA] 15 mg PO QHS #90 tablet Benztropine [Cogentin] 0.5 mg PO DAILY #60 tablet
[2021-06-24 10:11] VITALS: BP 96/68
[2021-06-24] MEDS: CYANOCOBALAMIN (VIT B-12) 1000 MCG TAB PO SCH (10:12)
[2021-06-24] MEDS: CHOLECALCIFEROL (VIT D3) 1000 UNIT (25 mcg) TAB PO SCH (10:12)
[2021-06-24] MEDS: FLUTICASONE PROPIONATE NASAL SPRAY 16 GM NS SCH (10:12)
[2021-06-24] MEDS: BENZTROPINE 0.5 MG TAB PO SCH (10:13)
[2021-06-24] MEDS: MAGNESIUM OXIDE 400 MG TAB PO SCH (10:13)
[2021-06-24] MEDS: CETIRIZINE 10 MG TAB PO SCH (10:13)
[2021-06-24] MEDS: POTASSIUM CHLORIDE ER 10 MEQ TAB PO SCH (10:13)
[2021-06-24] MEDS: DULoxetine 30 MG CAP PO SCH (10:13)
[2021-06-24] MEDS: PANTOPRAZOLE 20 MG TAB PO SCH (10:13)
[2021-06-24] MEDS: TORSEMIDE 10 MG TAB PO SCH (10:13)
[2021-06-24] MEDS: carvediloL 25 MG TAB PO SCH (10:14)
[2021-06-24] MEDS ORDERED: WARFARIN 5 MG TAB PO SCH (17:00)
== END 2021-06-24 13:17 | disposition home or self-care (01) | DRG 885 ==
LOC: 3A 11:15 → UNDOADMIN 11:15 → 5A 06-14 01:45
PROVIDERS: ADMIT Psychiatry & Neurology Psychiatry; ATTEND Psychiatry & Neurology Psychiatry
DX: F20.9 Schizophrenia, unspecified (principal); I13.0 Hypertensive heart and chronic kidney disease with heart failure and stage 1 through stage 4 chronic kidney disease, or unspecified chronic kidney disease; I50.9 Heart failure, unspecified; E78.5 Hyperlipidemia, unspecified; N18.9 Chronic kidney disease, unspecified; M19.90 Unspecified osteoarthritis, unspecified site; J45.909 Unspecified asthma, uncomplicated; Z20.822 Contact with and (suspected) exposure to COVID-19
CPT/HCPCS: 36415; 80053; 80061; 82962; 83036; 84443; 85025; 85610; G0378; J1630; Q0177